=== PATIENT | female | born 1975 | race American Indian/Alaskan Native ===

== ENCOUNTER 2016-03-09 06:52 | Emergency (ER) | payer OTHER ==
[2016-03-09] MEDS ORDERED: TYLENOL #3 PO ONE (08:36)
--- NOTE | 2016-03-09 09:03 | Emergency Department Report ---
<MONET VASQUEZ - Last Filed: 03/09/16 18:59> ED Back Pain/Injury HPI - General Chief Complaint: Back Pain/Injury Stated Complaint: BACK PAIN Time Seen by Provider: 03/09/16 08:20 Source: patient Limitations: No Limitations - History of Present Illness Initial Comments: Patient presents complaining of mid back pain that is worsened with movement x early hours of the morning. 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 Denies weakness, tingling, or numbness, chest pain or discomfort, SOB. Patient has hypertension currently being treated with hydrochlorothiazide 25 mg daily. States no BP meds this morning. Denies signs and symptoms of elevated blood pressure. LMP 1 week ago. - Related Data Previous Rx's Medication Instructions Recorded Last Taken Type Hydrochlorothiazide [Hctz] 25 mg PO QDAY #60 tablet 06/28/14 06/24/15 Rx 25 MG Naproxen [Naprosyn TAB] 500 mg PO BID #30 tablet 06/24/15 Unknown Rx Cyclobenzaprine [Flexeril] 10 mg PO TID PRN #20 tablet 11/01/15 Unknown Rx Cetirizine HCl [ZyrTEC] 10 mg PO DAILY #30 capsule 01/19/16 Unknown Rx Fluticasone [Flonase] 1 spray NS QDAY #1 bottle 01/19/16 Unknown Rx Ibuprofen [Motrin 800 MG tab] 800 mg PO Q8HR PRN #30 tablet 01/19/16 Unknown Rx Cyclobenzaprine [Flexeril] 10 mg PO TID PRN #20 tablet 03/09/16 Unknown Rx Ibuprofen [Motrin 800 MG tab] 800 mg PO Q8HR PRN #30 tablet 03/09/16 Unknown Rx Allergies Allergy/AdvReac Type Severity Reaction Status Date / Time coconut oil Allergy Angioedema Verified 03/09/16 08:07 ED Review of Systems ROS: Stated complaint: BACK PAIN Other details as noted in HPI Comment: All other systems reviewed and negative ED Past Medical Hx - Past Medical History Hx Hypertension: Yes Hx Arthritis: Yes Additional medical history: bronchitis - Surgical History Additional Surgical History: ectopic preg. Neck mass bx - Social History Smoking Status: Current Every Day Smoker Substance Use Type: Alcohol - Medications Home Medications: Home Medications Medication Instructions Recorded Confirmed Last Taken Type Hydrochlorothiazide [Hctz] 25 mg PO QDAY #60 tablet 06/28/14 06/24/15 06/24/15 Rx 25 MG Naproxen [Naprosyn TAB] 500 mg PO BID #30 tablet 06/24/15 Unknown Rx Cyclobenzaprine [Flexeril] 10 mg PO TID PRN #20 tablet 11/01/15 Unknown Rx Cetirizine HCl [ZyrTEC] 10 mg PO DAILY #30 capsule 01/19/16 Unknown Rx Fluticasone [Flonase] 1 spray NS QDAY #1 bottle 01/19/16 Unknown Rx Ibuprofen [Motrin 800 MG tab] 800 mg PO Q8HR PRN #30 tablet 01/19/16 Unknown Rx Cyclobenzaprine [Flexeril] 10 mg PO TID PRN #20 tablet 03/09/16 Unknown Rx Ibuprofen [Motrin 800 MG tab] 800 mg PO Q8HR PRN #30 tablet 03/09/16 Unknown Rx ED Physical Exam - General Limitations: No Limitations General appearance: alert, in no apparent distress - Head Head exam: Present: atraumatic, normocephalic - Eye Eye exam: Present: normal appearance, PERRL, EOMI - Neck Neck exam: Present: normal inspection, full ROM. Absent: tenderness, meningismus, lymphadenopathy - Respiratory Respiratory exam: Present: normal lung sounds bilaterally. Absent: respiratory distress - Cardiovascular Cardiovascular Exam: Present: regular rate, normal rhythm - GI/Abdominal GI/Abdominal exam: Present: soft. Absent: tenderness - Extremities Exam Extremities exam: Present: normal inspection, full ROM - Back Exam Back exam: Present: normal inspection, full ROM, tenderness (t-spine region.), muscle spasm, paraspinal tenderness (right T-spine region.). Absent: CVA tenderness (R), CVA tenderness (L) - Neurological Exam Neurological exam: Present: alert, oriented X3, normal gait, reflexes normal. Absent: motor sensory deficit - Psychiatric Psychiatric exam: Present: normal affect, normal mood - Skin Skin exam: Present: warm, dry, intact, normal color ED Course Vital Signs 03/09/16 03/09/16 08:08 09:17 Temperature 98.0 F Pulse Rate 74 74 Respiratory 18 20 Rate Blood Pressure 188/110 Blood Pressure 189/113 [Left] O2 Sat by Pulse 100 100 Oximetry ED Medical Decision Making - Radiology Data Radiology results: report reviewed According to radiology report x-ray T-spine, no acute pathology. - Medical Decision Making 41 YOF with acute thoracic strain and unremarkable xray T-spine. Patient is stable. She will be DC'd on oral Motrin and Flexeril (see prescriptions) and referred to specialist. X-rays results fully explained to patient. BP noted. however patient is asymptomatic and hasn't taken her BP meds today. She is instructed to take her meds and follow up with her PCP. She verbalized understanding and is agreeable to plan. Critical care attestation.: If time is entered above; I have spent that time in minutes in the direct care of this critically ill patient, excluding procedure time. ED Disposition Disposition: DISCHARGED TO HOME OR SELFCARE Is pt being admited?: No Does the pt Need Aspirin: No Condition: Stable Instructions: Muscle Strain (ED), Core Strengthening Exercises (GEN) Additional Instructions: Follow instructions for care. Use medications as prescribed. Be compliant with your antihypertensive medication. As discussed, Follow-up immediately with your PCP for your elevated blood pressure as not doing so in a timely manner could resultant heart attack or stroke. Return to ED for new or worsening symptoms. Prescriptions: Cyclobenzaprine [Flexeril] 10 mg PO TID PRN #20 tablet PRN Reason: Muscle Spasm Ibuprofen [Motrin 800 MG tab] 800 mg PO Q8HR PRN #30 tablet PRN Reason: Pain Referrals: PRIMARY CARE,MD [Primary Care Provider] - 2-3 Days HAN MCMANUS MD [Staff Physician] - 3-5 Days <THIEN RIOS - Last Filed: 03/10/16 14:38> ED Course - Reevaluation(s) Reevaluation #1: I have reviewed this chart. The patient has uncontrolled hypertension. She has midthoracic back pain. She needs further workup. Differential diagnosis could include aortic dissection. However I have looked at her T-spine x-ray and she appears to have a normal mediastinum. She will be called back for further evaluation. Charge nurse was informed. 03/10/16 14:37
--- NOTE | 2016-03-09 09:07 | XRay Report ---
THORACIC SPINE: History: Back pain, injury. The bones are normally mineralized with well preserved vertebral height, alignment and interspace distances. No paraspinal soft tissue widening is noted. IMPRESSION: Normal study.
[2016-03-09 09:17] VITALS: BP 189/113
== END 2016-03-09 09:27 | disposition home or self-care (01) ==
LOC: ED 06:52
DX: M54.6 Pain in thoracic spine (principal); I10 Essential (primary) hypertension; M19.90 Unspecified osteoarthritis, unspecified site; F17.200 Nicotine dependence, unspecified, uncomplicated; Z91.02 Food additives allergy status
CPT/HCPCS: 72072

== ENCOUNTER 2016-03-12 06:57 | Emergency (ER) | payer OTHER ==
[2016-03-12] MEDS ORDERED: CATAPRES PO ONE (08:56)
--- NOTE | 2016-03-12 09:09 | Emergency Department Report ---
ED Back Pain/Injury HPI - General Chief Complaint: Recheck/Abnormal Lab/Rx Stated Complaint: CALL BACK Time Seen by Provider: 03/12/16 08:48 Source: patient Limitations: No Limitations - History of Present Illness Initial Comments: 41-year-old female with a past medical history of hypertension and arthritis presents to the hospital complains of posterior thoracic pain for the past 4 days. Pain wasn't described as a middle pressure that was constant but now intermittent. Pain started after performing heavy lifting also involving prolonged bending forward. Patient was seen and evaluated on March 12 by the mid-level practitioner and diagnosed with musculoskeletal pain. After chart review physician requesting return to ER for evaluation to rule out dissection given back pain and uncontrolled hypertension. Patient states she monitors her blood pressure at home and he has been poorly controlled the last 2-3 years. She has been compliant with the hydrochlorothiazide 25 mg every at bedtime. Last dose was last night. In the past patient has been on lisinopril as well. Patient complains of pain with movement and deep inspiration. Patient does have a primary care doctor but cannot recall the name. Patient denies chest pain, dyspnea, nausea, vomiting, numbness, tingling, weakness, or diaphoresis. - Related Data Previous Rx's Medication Instructions Recorded Last Taken Type Hydrochlorothiazide [Hctz] 25 mg PO QDAY #60 tablet 06/28/14 03/11/16 20:30 Rx Ibuprofen [Motrin 800 MG tab] 800 mg PO Q8HR PRN #30 tablet 01/19/16 03/12/16 03 :30 Rx Cyclobenzaprine [Flexeril] 10 mg PO TID PRN #20 tablet 03/09/16 03/11/16 08:00 Rx Lisinopril [Zestril TAB] 20 mg PO QDAY #30 tablet 03/12/16 Unknown Rx Allergies Allergy/AdvReac Type Severity Reaction Status Date / Time coconut oil Allergy Angioedema Verified 03/12/16 07:33 ED Review of Systems ROS: Stated complaint: CALL BACK Other details as noted in HPI Comment: All other systems reviewed and negative Other: Constitutional: No fevers chills or weight loss Eyes: No eye pain visual changes or discharge ENT: No ear pain or throat pain Neck: Denies pain Respiratory: Denies cough wheezing shortness of breath Cardiovascular: Denies chest pain, palpitations, syncope GI: Denies abdominal pain, nausea, vomiting, diarrhea : Denies dysuria Musculoskeletal: As per HPI Skin: Denies rash, lesions, erythema Neurologic: Denies headache, numbness, weakness Psychiatric: Denies suicidal ideation, hallucinations ED Past Medical Hx - Past Medical History Hx Hypertension: Yes Hx Arthritis: Yes Additional medical history: bronchitis. FIBROIDS - Surgical History Additional Surgical History: ectopic preg. Neck mass bx - Social History Smoking Status: Current Every Day Smoker Substance Use Type: Alcohol - Medications Home Medications: Home Medications Medication Instructions Recorded Confirmed Last Taken Type Hydrochlorothiazide [Hctz] 25 mg PO QDAY #60 tablet 06/28/14 03/12/16 03/11/16 20:30 Rx Ibuprofen [Motrin 800 MG tab] 800 mg PO Q8HR PRN #30 tablet 01/19/16 03/12/16 03:30 Rx Cyclobenzaprine [Flexeril] 10 mg PO TID PRN #20 tablet 03/09/16 03/12/16 08:00 Rx Lisinopril [Zestril TAB] 20 mg PO QDAY #30 tablet 03/12/16 Unknown Rx ED Physical Exam - General Limitations: No Limitations - Other Other exam information: General: No limitations, patient is alert in no acute distress Head exam: Atraumatic, normocephalic Eyes exam: Normal appearance ENT: Moist mucous membrane, normal oropharynx Neck exam: Normal inspection, full range of motion, no meningismus nontender Respiratory exam: Clear to auscultation bilateral, no wheezes, rales, crackles Cardiovascular: Normal rate and rhythm, normal heart sounds Abdomen: Soft, nondistended, and nontender, with normal bowel sounds, no rebound, or guarding Extremity: Full range of motion normal inspection no deformity Back: Normal Inspection, full range of motion, no tenderness however pain to mid lower post thoracic area with twisting torso in either direction Neurologic: Alert, oriented x3, cranial nerves intact, no motor or sensory deficit Psychiatric: normal affect, normal mood Skin: Warm, dry, intact ED Course Vital Signs 03/12/16 03/12/16 03/12/16 07:20 09:14 09:15 Temperature 98.0 F 98.1 F Pulse Rate 77 88 85 Respiratory 17 16 Rate Blood Pressure 202/114 178/113 Blood Pressure 178/113 [Left] O2 Sat by Pulse 100 99 Oximetry 03/12/16 03/12/16 03/12/16 10:18 10:31 11:43 Temperature Pulse Rate 80 78 Respiratory 16 16 16 Rate Blood Pressure Blood Pressure 169/108 168/101 [Left] O2 Sat by Pulse 99 99 99 Oximetry - Reevaluation(s) Reevaluation #1: 03/12/16 11:57 Patient given clonidine 0.1 mg. BP is trending downward. ED Medical Decision Making - Lab Data Result diagrams: 03/12/16 09:10 03/12/16 09:10 Lab Results 03/12/16 03/12/16 Range/Units 09:10 09:10 WBC 5.3 (4.5-11.0) K/mm3 RBC 3.84 (3.65-5.03) M/mm3 Hgb 12.6 (10.1-14.3) gm/dl Hct 37.7 (30.3-42.9) % MCV 98 H (79-97) fl MCH 33 H (28-32) pg MCHC 33 (30-34) % RDW 14.7 (13.2-15.2) % Plt Count 313 (140-440) K/mm3 Sodium 138 (137-145) mmol/L Potassium 3.8 (3.6-5.0) mmol/L Chloride 101.4 (98-107) mmol/L Carbon Dioxide 25 (22-30) mmol/L Anion Gap 15 mmol/L BUN 10 (7-17) mg/dL Creatinine 0.6 L (0.7-1.2) mg/dL Estimated GFR > 60 ml/min BUN/Creatinine Ratio 16.66 % Glucose 90 (65-100) mg/dL Calcium 9.0 (8.4-10.2) mg/dL - Radiology Data Radiology results: report reviewed CT angios chest: No acute abnormality CT angiogram abdomen and pelvis: NAF Moderate to severe uterine fibroid disease - Medical Decision Making Plan to discharge patient home on additional BP medication for chronically elevated hypertension. No signs of hypertensive emergency. CT angiogram negative for aortic abnormality. The patient has musculoskeletal injury from recent heavy lifting at work. Outpatient follow-up will be encouraged. - Differential Diagnosis muscle strain, dissection hypertensive emergency, hypertensive urgency Critical Care Time: No Critical care attestation.: If time is entered above; I have spent that time in minutes in the direct care of this critically ill patient, excluding procedure time. ED Disposition Clinical Impression: Uncontrolled hypertension Strain, back Qualifiers: Encounter type: subsequent encounter Qualified Code(s): S39.012D - Strain of muscle, fascia and tendon of lower back, subsequent encounter Disposition: DISCHARGED TO HOME OR SELFCARE Is pt being admited?: No Does the pt Need Aspirin: No Condition: Stable Instructions: Hypertension (ED), Back Pain (ED) Additional Instructions: Continue your hydrochlorothiazide and also taking lisinopril prescribed daily for your blood pressure. Continue to monitor your blood pressure at home and keep a log. Follow-up with your doctor within 3-5 days to discuss your response to the medication change and to receive further instructions for medication adjustment. Return if symptoms worsen. Prescriptions: Lisinopril [Zestril TAB] 20 mg PO QDAY #30 tablet Referrals: PRIMARY CARE, [Primary Care Provider] - 3-5 Days Time of Disposition: 12:03
[2016-03-12 09:25] LABS: Hematocrit 37.7 % (30.3-42.9); Hemoglobin 12.6 gm/dl (10.1-14.3); Mean Corpuscular HGB Conc 33 % (30-34); Mean Corpuscular Hemoglobin 33 pg (28-32); Mean Corpuscular Volume 98 fl (79-97); Platelet Count 313 K/mm3 (140-440); Red Blood Count 3.84 M/mm3 (3.65-5.03); Red Cell Distribution Width 14.7 % (13.2-15.2); White Blood Count 5.3 K/mm3 (4.5-11.0)
[2016-03-12 09:39] LABS: Anion Gap 15 mmol/L; BUN/Creatinine Ratio 16.66; Blood Urea Nitrogen 10 mg/dL (7-17); Carbon Dioxide 25 mmol/L (22-30); Chloride 101.4 mmol/L (98-107); Glucose 90 mg/dL (65-100); Potassium 3.8 mmol/L (3.6-5.0); Sodium 138 mmol/L (137-145)
[2016-03-12] MEDS ORDERED: NACL ONE (09:42)
--- NOTE | 2016-03-12 11:21 | Cat Scan Report ---
CTA chest: History: Hypertension, back pain. Evaluate for dissection. Findings: Note no evidence of aortic aneurysm or aortic dissection. No evidence of pulmonary embolism. No mediastinal mass or adenopathy. No pleural or pericardial effusion. Normal lung parenchyma. No discrete nodularity or consolidation. Impression: No evidence of the aneurysm a pulmonary embolism. No acute changes.
[2016-03-12 11:44] VITALS: BP 168/101
--- NOTE | 2016-03-12 11:50 | Cat Scan Report ---
CT ANGIO ABDOMEN AND PELVIS History: Back pain, evaluate for aortic dissection. Technique: Helical CT following IV contrast. Sagittal and coronal reformatted images. Rotational MIP images. NASCET criteria was utilized. Findings: The visualized aorta, celiac axis, SMA, YOUSIF, bilateral renal arteries and bilateral iliac systems are widely patent with no evidence of atherosclerotic disease. There is less than 10% stenosis throughout these vessels. There is no aneurysm or dissection. The uterus is markedly enlarged and lobular consistent with advanced uterine fibroid disease. The remaining abdominal and pelvic viscera are within normal limits on CTA exam. No fracture or bone lesion is appreciated. Impression: Normal CTA of the abdomen and pelvis. No evidence for dissection. Moderate to severe uterine fibroid disease.
== END 2016-03-12 12:14 | disposition home or self-care (01) ==
LOC: ED 06:57
DX: S39.012D Strain of muscle, fascia and tendon of lower back, subsequent encounter (principal); I10 Essential (primary) hypertension; F17.200 Nicotine dependence, unspecified, uncomplicated; X58.XXXA Exposure to other specified factors, initial encounter; Y93.9 Activity, unspecified; Y92.9 Unspecified place or not applicable; Y99.9 Unspecified external cause status
CPT/HCPCS: 36415; 71275; 74174; 80048; 85027; 99284; Q9967

== ENCOUNTER 2016-05-07 00:17 | Emergency (ER) | payer OTHER ==
[2016-05-07 01:40] LABS: Anion Gap 15 mmol/L; BUN/Creatinine Ratio 13.33; Blood Urea Nitrogen 8 mg/dL (7-17); Carbon Dioxide 24 mmol/L (22-30); Glucose 95 mg/dL (65-100); Potassium 3.2 mmol/L (3.6-5.0); Sodium 138 mmol/L (137-145)
[2016-05-07 02:10] LABS: Basophils % (Auto) 1.1 % (0.0-1.8); Hematocrit 36.9 % (30.3-42.9); Hemoglobin 12.2 gm/dl (10.1-14.3); Mean Corpuscular HGB Conc 33 % (30-34); Mean Corpuscular Hemoglobin 33 pg (28-32); Mean Corpuscular Volume 99 fl (79-97); Platelet Count 300 K/mm3 (140-440); Red Blood Count 3.74 M/mm3 (3.65-5.03); Red Cell Distribution Width 14.8 % (13.2-15.2); White Blood Count 5.7 K/mm3 (4.5-11.0)
[2016-05-07] MEDS ORDERED: K-DUR PO ONE (09:39)
[2016-05-07 09:46] VITALS: BP 140/98
[2016-05-07] MEDS ORDERED: ULTRAM ONE (09:47)
[2016-05-07 09:53] LABS: Urine Drugs of Abuse Note Disclamer
[2016-05-07] MEDS ORDERED: ULTRAM PO ONE (09:55)
[2016-05-07 10:21] LABS: Bacteria,Urine 1+ /HPF (Negative); Mucus,Urine FEW /HPF
[2016-05-07 10:22] LABS: Bilirubin,Urine NEG (Negative); Blood,Urine SM (Negative); Ketones,Urine NEG (Negative); Leukocyte Esterase,Urine SM (Negative); Nitrite,Urine NEG (Negative); Protein,Urine <15 mg/dL mg/dL (Negative); Urobilinogen,Urine < 2.0 mg/dL (<2.0)
--- NOTE | 2016-05-07 12:14 | Emergency Department Report ---
ED General Adult HPI - General Chief complaint: High BP Stated complaint: POSS HIGH BP Time Seen by Provider: 05/07/16 09:36 Source: patient Mode of arrival: Ambulatory Limitations: No Limitations - History of Present Illness Initial comments: Patient was concerned about her blood pressure. She states that she occasionally has headaches and sometimes chest pain. However she does not report either chest pain or headache of any recent incidents. She has no chest pain or headache now. She denies any respiratory symptoms or any neurological change. She states that she just takes HCTZ for her blood pressure. -: Gradual Location: head (occasionally but not current), chest (occasionally but nonexertional) Radiation: non-radiation Quality: aching Consistency: now resolved Improves with: none Worsens with: none Associated Symptoms: denies other symptoms Treatments Prior to Arrival: none - Related Data Previous Rx's Medication Instructions Recorded Last Taken Type Hydrochlorothiazide [Hctz] 25 mg PO QDAY #60 tablet 06/28/14 05/06/16 Rx Lisinopril/Hydrochlorothiazide 1 tab PO QDAY #30 tablet 05/07/16 Unknown Rx [Zestoretic 10-12.5 mg] Allergies Allergy/AdvReac Type Severity Reaction Status Date / Time coconut oil Allergy Angioedema Verified 05/07/16 00:57 ED Review of Systems ROS: Stated complaint: POSS HIGH BP Other details as noted in HPI Constitutional: denies: chills, fever Eyes: denies: eye pain, eye discharge, vision change ENT: denies: ear pain, throat pain Respiratory: denies: cough, shortness of breath, wheezing Cardiovascular: as per HPI, chest pain. denies: palpitations Endocrine: no symptoms reported Gastrointestinal: denies: abdominal pain, nausea, diarrhea Genitourinary: denies: urgency, dysuria, discharge Musculoskeletal: denies: back pain, joint swelling, arthralgia Skin: denies: rash, lesions Neurological: headache. denies: weakness, numbness, paresthesias, confusion, abnormal gait, vertigo Psychiatric: denies: anxiety, depression Hematological/Lymphatic: denies: easy bleeding, easy bruising ED Past Medical Hx - Past Medical History Previous Medical History?: Yes Hx Hypertension: Yes Hx Arthritis: Yes Additional medical history: bronchitis. FIBROIDS - Surgical History Past Surgical History?: Yes Additional Surgical History: ectopic preg. Neck mass bx - Social History Smoking Status: Never Smoker Substance Use Type: None - Medications Home Medications: Home Medications Medication Instructions Recorded Confirmed Last Taken Type Hydrochlorothiazide [Hctz] 25 mg PO QDAY #60 tablet 06/28/14 05/07/16 05/06/16 Rx Lisinopril/Hydrochlorothiazide 1 tab PO QDAY #30 tablet 05/07/16 Unknown Rx [Zestoretic 10-12.5 mg] ED Physical Exam - General Limitations: No Limitations General appearance: alert, in no apparent distress - Head Head exam: Present: atraumatic, normocephalic - Eye Eye exam: Present: normal appearance, PERRL, EOMI. Absent: scleral icterus Pupils: Present: normal accommodation - ENT ENT exam: Present: normal exam, mucous membranes moist - Neck Neck exam: Present: normal inspection - Respiratory Respiratory exam: Present: normal lung sounds bilaterally. Absent: respiratory distress - Cardiovascular Cardiovascular Exam: Present: regular rate, normal rhythm. Absent: systolic murmur, diastolic murmur, rubs, gallop - GI/Abdominal GI/Abdominal exam: Present: soft, normal bowel sounds. Absent: distended, tenderness, guarding, rebound, rigid, organomegaly, mass, bruit, pulsatile mass , hernia - Extremities Exam Extremities exam: Present: normal inspection - Back Exam Back exam: Present: normal inspection - Neurological Exam Neurological exam: Present: alert, oriented X3, CN II-XII intact. Absent: motor sensory deficit - Psychiatric Psychiatric exam: Present: normal affect, normal mood - Skin Skin exam: Present: warm, dry, intact, normal color. Absent: rash ED Course Vital Signs 05/07/16 05/07/16 05/07/16 00:52 08:26 09:45 Temperature 98.6 F 98.1 F Pulse Rate 72 85 75 Respiratory 18 16 16 Rate Blood Pressure 162/112 165/100 140/98 [Right] O2 Sat by Pulse 100 99 99 Oximetry - Reevaluation(s) Reevaluation #1: On reexamination the patient's blood pressure is within the normal range. She is asymptomatic. Her blood pressure was 165/100 on arrival. Her medical regimen will be changed. Her potassium was repleted. 05/07/16 12:14 ED Medical Decision Making - Lab Data Result diagrams: 05/07/16 01:07 05/07/16 01:07 Laboratory Results - last 24 hr 05/07/16 05/07/16 05/07/16 01:07 01:07 03:59 WBC 5.7 RBC 3.74 Hgb 12.2 Hct 36.9 MCV 99 H MCH 33 H MCHC 33 RDW 14.8 Plt Count 300 Lymph % (Auto) 45.9 H Henry % (Auto) 8.3 H Eos % (Auto) 6.0 H Baso % (Auto) 1.1 Lymph # 2.6 Henry # 0.5 Eos # 0.3 Baso # 0.1 Seg Neutrophils % 38.7 L Seg Neutrophils # 2.2 Sodium 138 Potassium 3.2 L Chloride 102.0 Carbon Dioxide 24 Anion Gap 15 BUN 8 Creatinine 0.6 L Estimated GFR > 60 BUN/Creatinine Ratio 13.33 Glucose 95 Calcium 9.0 Troponin T < 0.010 < 0.010 Urine Color Urine Turbidity Urine pH Ur Specific Henderson Urine Protein Urine Glucose (UA) Urine Ketones Urine Blood Urine Nitrite Ur Reducing Substances Urine Bilirubin Urine Ictotest Urine Urobilinogen Ur Leukocyte Esterase Urine WBC (Auto) Urine RBC (Auto) U Epithel Cells (Auto) Urine Bacteria (Auto) Urine Mucus Urine HCG, Qual Urine Opiates Screen Urine Methadone Screen Ur Barbiturates Screen Ur Phencyclidine Scrn Ur Amphetamines Screen U Benzodiazepines Scrn Urine Cocaine Screen U Marijuana (THC) Screen Drugs of Abuse Note 05/07/16 05/07/16 05/07/16 07:34 09:41 09:41 WBC RBC Hgb Hct MCV MCH MCHC RDW Plt Count Lymph % (Auto) Henry % (Auto) Eos % (Auto) Baso % (Auto) Lymph # Henry # Eos # Baso # Seg Neutrophils % Seg Neutrophils # Sodium Potassium Chloride Carbon Dioxide Anion Gap BUN Creatinine Estimated GFR BUN/Creatinine Ratio Glucose Calcium Troponin T < 0.010 Urine Color Yellow Urine Turbidity Clear Urine pH 5.0 Ur Specific Henderson 1.026 Urine Protein <15 mg/dl Urine Glucose (UA) Neg Urine Ketones Neg Urine Blood Sm Urine Nitrite Neg Ur Reducing Substances Not Reportable Urine Bilirubin Neg Urine Ictotest Not Reportable Urine Urobilinogen < 2.0 Ur Leukocyte Esterase Sm Urine WBC (Auto) 5.0 Urine RBC (Auto) 6.0 U Epithel Cells (Auto) 11.0 Urine Bacteria (Auto) 1+ Urine Mucus Few Urine HCG, Qual Negative Urine Opiates Screen Presumptive negative Urine Methadone Screen Presumptive negative Ur Barbiturates Screen Presumptive negative Ur Phencyclidine Scrn Presumptive negative Ur Amphetamines Screen Presumptive negative U Benzodiazepines Scrn Presumptive negative Urine Cocaine Screen Presumptive negative U Marijuana (THC) Screen Presumptive negative Drugs of Abuse Note Disclamer Critical care attestation.: If time is entered above; I have spent that time in minutes in the direct care of this critically ill patient, excluding procedure time. ED Disposition Clinical Impression: Essential hypertension, Hypokalemia Chest pain Qualifiers: Chest pain type: unspecified Qualified Code(s): R07.9 - Chest pain, unspecified Disposition: DISCHARGED TO HOME OR SELFCARE Is pt being admited?: No Does the pt Need Aspirin: No Condition: Stable Instructions: Chest Pain (ED), Hypertension (ED), Hypokalemia (ED) Additional Instructions: Follow-up primary care setting. Stop your current blood pressure medicine. Rx as directed. Return any acute change or problem. Prescriptions: Lisinopril/Hydrochlorothiazide [Zestoretic 10-12.5 mg] 1 tab PO QDAY #30 tablet Referrals: PRIMARY CARE, [Primary Care Provider] - 3-5 Days [facility] [Provider Group] - 3-5 Days Time of Disposition: 12:16
== END 2016-05-07 12:38 | disposition home or self-care (01) ==
LOC: ED 00:17
DX: I10 Essential (primary) hypertension (principal); E87.6 Hypokalemia; R07.9 Chest pain, unspecified
CPT/HCPCS: 36415; 80048; 80307; 81001; 81025; 84484; 85025; 93005; 93010; 99284

== ENCOUNTER 2016-06-24 11:38 | Emergency (ER) | payer OTHER ==
[2016-06-24 11:48] VITALS: BP 179/118
[2016-06-24 12:32] LABS: Basophils % (Auto) 1.1 % (0.0-1.8); Eosinophils % (Auto) 9.1 % (0.0-4.3); Hematocrit 36.4 % (30.3-42.9); Hemoglobin 11.9 gm/dl (10.1-14.3); Mean Corpuscular HGB Conc 33 % (30-34); Mean Corpuscular Hemoglobin 33 pg (28-32); Mean Corpuscular Volume 101 fl (79-97); Platelet Count 262 K/mm3 (140-440); Red Blood Count 3.62 M/mm3 (3.65-5.03); Red Cell Distribution Width 14.5 % (13.2-15.2); White Blood Count 5.1 K/mm3 (4.5-11.0)
[2016-06-24] MEDS ORDERED: IMODIUM PO ONE (12:36)
[2016-06-24 12:38] LABS: Bacteria,Urine 1+ /HPF (Negative); Bilirubin,Urine NEG (Negative); Blood,Urine MOD (Negative); Ketones,Urine NEG (Negative); Leukocyte Esterase,Urine MOD (Negative); Mucus,Urine FEW /HPF; Nitrite,Urine NEG (Negative); Protein,Urine <15 mg/dL mg/dL (Negative); Urobilinogen,Urine < 2.0 mg/dL (<2.0)
[2016-06-24 12:53] LABS: Anion Gap 15 mmol/L; Blood Urea Nitrogen 6 mg/dL (7-17); Calcium 8.8 mg/dL (8.4-10.2); Carbon Dioxide 23 mmol/L (22-30); Chloride 104.7 mmol/L (98-107); Glucose 84 mg/dL (65-100); Potassium 3.9 mmol/L (3.6-5.0); Sodium 139 mmol/L (137-145)
--- NOTE | 2016-06-24 13:05 | XRay Report ---
ABDOMEN, 2 views: History: Nausea, vomiting, diarrhea. There is no evidence of free air beneath the diaphragms. The gas pattern within the abdomen is unremarkable. There is no evidence of bowel dilatation, significant air-fluid levels, or pathologic calcifications. Organ shadows are unremarkable. IMPRESSION: Unremarkable abdomen.
--- NOTE | 2016-06-24 13:19 | Emergency Department Report ---
ED N/V/D HPI - General Chief complaint: Nausea/Vomiting/Diarrhea Stated complaint: STOMACH PAINS Time Seen by Provider: 06/24/16 12:18 Source: patient Mode of arrival: Ambulatory Limitations: No Limitations - History of Present Illness MD complaint: nausea, vomiting, diarrhea, abdominal pain -: Gradual Description of Vomiting: food contents Description of Diarrhea: water Associated Abdominal Pain: Yes Location: diffuse Radiation: none Severity: mild Quality: cramping Consistency: intermittent Improves with: none Worsens with: none Associated Symptoms: denies: myalgias, chest pain, cough, diaphoresis, fever/ chills, headaches, loss of appetite, malaise, nausea/vomiting - Related Data Previous Rx's Medication Instructions Recorded Last Taken Type Hydrochlorothiazide [Hctz] 25 mg PO QDAY #60 tablet 06/28/14 05/06/16 Rx Lisinopril/Hydrochlorothiazide 1 tab PO QDAY #30 tablet 05/07/16 Unknown Rx [Zestoretic 10-12.5 mg] Diphenoxylate HCl/Atropine 1 each PO BID #12 tablet 06/24/16 Unknown Rx [Lomotil 2.5-0.025 mg Tablet] Allergies Allergy/AdvReac Type Severity Reaction Status Date / Time coconut oil Allergy Angioedema Verified 05/07/16 00:57 ED Review of Systems ROS: Stated complaint: STOMACH PAINS Other details as noted in HPI Constitutional: denies: chills, fever Eyes: denies: eye pain, eye discharge, vision change ENT: denies: ear pain, throat pain Respiratory: denies: cough, shortness of breath, wheezing Cardiovascular: denies: chest pain, palpitations Endocrine: no symptoms reported Gastrointestinal: denies: abdominal pain, nausea, diarrhea Genitourinary: denies: urgency, dysuria, discharge Musculoskeletal: denies: back pain, joint swelling, arthralgia Skin: denies: rash, lesions Neurological: denies: headache, weakness, paresthesias Psychiatric: denies: anxiety, depression Hematological/Lymphatic: denies: easy bleeding, easy bruising ED Past Medical Hx - Past Medical History Previous Medical History?: Yes Hx Hypertension: Yes Hx Arthritis: Yes Additional medical history: bronchitis. FIBROIDS - Surgical History Past Surgical History?: Yes Additional Surgical History: ectopic preg. Neck mass bx - Social History Smoking Status: Current Every Day Smoker Substance Use Type: Alcohol - Medications Home Medications: Home Medications Medication Instructions Recorded Confirmed Last Taken Type Hydrochlorothiazide [Hctz] 25 mg PO QDAY #60 tablet 06/28/14 05/07/16 05/06/16 Rx Lisinopril/Hydrochlorothiazide 1 tab PO QDAY #30 tablet 05/07/16 Unknown Rx [Zestoretic 10-12.5 mg] Diphenoxylate HCl/Atropine 1 each PO BID #12 tablet 06/24/16 Unknown Rx [Lomotil 2.5-0.025 mg Tablet] ED Physical Exam - General Limitations: No Limitations General appearance: alert, in no apparent distress - Head Head exam: Present: atraumatic, normocephalic - Eye Eye exam: Present: normal appearance - ENT ENT exam: Present: mucous membranes moist - Neck Neck exam: Present: normal inspection - Respiratory Respiratory exam: Present: normal lung sounds bilaterally. Absent: respiratory distress - Cardiovascular Cardiovascular Exam: Present: regular rate, normal rhythm. Absent: systolic murmur, diastolic murmur, rubs, gallop - GI/Abdominal GI/Abdominal exam: Present: soft, normal bowel sounds - Extremities Exam Extremities exam: Present: normal inspection - Back Exam Back exam: Present: normal inspection - Neurological Exam Neurological exam: Present: alert, oriented X3 - Psychiatric Psychiatric exam: Present: normal affect, normal mood - Skin Skin exam: Present: warm, dry, intact, normal color. Absent: rash ED Course Vital Signs 06/24/16 11:46 Temperature 98.3 F Pulse Rate 78 Respiratory 16 Rate Blood Pressure 179/118 O2 Sat by Pulse 100 Oximetry ED Medical Decision Making - Lab Data Result diagrams: 06/24/16 12:19 06/24/16 12:19 Critical care attestation.: If time is entered above; I have spent that time in minutes in the direct care of this critically ill patient, excluding procedure time. ED Disposition Clinical Impression: Diarrhea Disposition: DISCHARGED TO HOME OR SELFCARE Is pt being admited?: No Does the pt Need Aspirin: No Condition: Good Instructions: Loperamide (By mouth), Acute Diarrhea (ED) Prescriptions: Diphenoxylate HCl/Atropine [Lomotil 2.5-0.025 mg Tablet] 1 each PO BID #12 tablet Referrals: PRIMARY CARE, [Primary Care Provider] - 3-5 Days Forms: Work/School Release Form(ED) Time of Disposition: 13:17
== END 2016-06-24 13:35 | disposition home or self-care (01) ==
LOC: ED 11:38
DX: R19.7 Diarrhea, unspecified (principal); I10 Essential (primary) hypertension; M19.90 Unspecified osteoarthritis, unspecified site; F17.200 Nicotine dependence, unspecified, uncomplicated; Z91.02 Food additives allergy status
CPT/HCPCS: 36415; 74020; 80048; 81001; 85025

== ENCOUNTER 2017-01-07 19:30 | Inpatient (IN) | payer OTHER ==
[2017-01-07 20:38] LABS: Hematocrit 37.8 % (30.3-42.9); Hemoglobin 12.7 gm/dl (10.1-14.3); Mean Corpuscular HGB Conc 34 % (30-34); Mean Corpuscular Hemoglobin 33 pg (28-32); Mean Corpuscular Volume 97 fl (79-97); Platelet Count 262 K/mm3 (140-440); Red Cell Distribution Width 14.8 % (13.2-15.2); White Blood Count 5.8 K/mm3 (4.5-11.0)
[2017-01-07 20:50] LABS: INR 0.9 (0.87-1.13)
[2017-01-07 20:51] LABS: Partial Thromboplastin Time 30.3 Sec. (24.2-36.6)
[2017-01-07 20:58] LABS: Anion Gap 13 mmol/L; BUN/Creatinine Ratio 12; Blood Urea Nitrogen 7 mg/dL (7-17); Calcium 9.3 mg/dL (8.4-10.2); Carbon Dioxide 26 mmol/L (22-30); Chloride 99.7 mmol/L (98-107); Glucose 89 mg/dL (65-100); Potassium 3.3 mmol/L (3.6-5.0); Sodium 135 mmol/L (137-145)
--- NOTE | 2017-01-07 21:03 | Cat Scan Report ---
FINAL REPORT PROCEDURE: CT HEAD/BRAIN WO CON TECHNIQUE: Computerized tomography of the head was performed without contrast material. HISTORY: SEVERE HEADACHE WITH HTN COMPARISON: No prior studies are available for comparison. FINDINGS: Skull and scalp: Normal. Paranasal sinuses: Normal. Ventricles and subarachnoid spaces: Normal. Cerebrum: No evidence of hemorrhage, acute infarction or mass . Cerebellum and brainstem: No evidence of hemorrhage, acute infarction or mass. Vasculature: Normal. Comments: None. IMPRESSION: Normal Examination
[2017-01-07 22:15] LABS: Bilirubin,Urine NEG (Negative); Blood,Urine LG (Negative); Ketones,Urine NEG (Negative); Leukocyte Esterase,Urine NEG (Negative); Nitrite,Urine NEG (Negative); Protein,Urine <15 mg/dL mg/dL (Negative); Urobilinogen,Urine < 2.0 mg/dL (<2.0)
--- NOTE | 2017-01-08 06:33 | Emergency Department Report ---
ED Headache HPI - General Chief Complaint: Neuro Symptoms/Deficit Stated Complaint: HEADACHE Time Seen by Provider: 01/08/17 06:19 - History of Present Illness Initial Comments: Patient complains of left frontal headache. She stated that yesterday that her left vision was blurred for about 5 minutes. She also stated that she experienced difficulty speaking and moving her face because "it hurt". Today she has no visual problems or difficulty speaking/facial drooping. She denies any neurological change otherwise. She has been fully ambulatory without difficulty. She has a history of hypertension and states she is compliant with her medicines. She denies any recent fever or chills. Timing/Duration: 24 hours Quality: moderate, severe Head Injury Location: frontal Recent Head Trauma: no recent headache/trauma Modifying Factors: improves with: other Associated Symptoms: denies symptoms (as above described) Allergies/Adverse Reactions: Allergies coconut oil Allergy (Verified 05/07/16 00:57) Angioedema Home Medications: Ambulatory Orders Hydrochlorothiazide [Hctz] 25 mg PO QDAY #60 tablet 06/28/14 ED Review of Systems ROS: Stated complaint: HEADACHE Other details as noted in HPI Constitutional: denies: chills, fever Eyes: denies: eye pain, eye discharge, vision change ENT: denies: ear pain, throat pain Respiratory: denies: cough, shortness of breath, wheezing Cardiovascular: denies: chest pain, palpitations Endocrine: no symptoms reported Gastrointestinal: denies: abdominal pain, nausea, diarrhea Genitourinary: denies: urgency, dysuria, discharge Musculoskeletal: denies: back pain, joint swelling, arthralgia Skin: denies: rash, lesions Neurological: as per HPI, headache. denies: weakness, paresthesias Psychiatric: denies: anxiety, depression Hematological/Lymphatic: denies: easy bleeding, easy bruising ED Past Medical Hx - Past Medical History Hx Hypertension: Yes Hx Arthritis: Yes Additional medical history: bronchitis. FIBROIDS - Surgical History Additional Surgical History: ectopic preg. Neck mass bx - Social History Smoking Status: Current Every Day Smoker Substance Use Type: None - Medications Home Medications: Home Medications Medication Instructions Recorded Confirmed Last Taken Type Hydrochlorothiazide [Hctz] 25 mg PO QDAY #60 tablet 06/28/14 01/08/17 01/07/17 17:00 Rx ED Physical Exam - General Limitations: No Limitations General appearance: alert, in no apparent distress - Head Head exam: Present: atraumatic, normocephalic - Eye Eye exam: Present: normal appearance, PERRL, EOMI. Absent: scleral icterus - ENT ENT exam: Present: mucous membranes moist - Neck Neck exam: Present: normal inspection - Respiratory Respiratory exam: Present: normal lung sounds bilaterally. Absent: respiratory distress - Cardiovascular Cardiovascular Exam: Present: regular rate, normal rhythm. Absent: systolic murmur, diastolic murmur, rubs, gallop - GI/Abdominal GI/Abdominal exam: Present: soft, normal bowel sounds. Absent: distended, tenderness, guarding, rebound - Extremities Exam Extremities exam: Present: normal inspection - Back Exam Back exam: Present: normal inspection - Neurological Exam Neurological exam: Present: alert, oriented X3, CN II-XII intact, normal gait, other. Absent: motor sensory deficit - Psychiatric Psychiatric exam: Present: normal affect, normal mood - Skin Skin exam: Present: warm, dry, intact, normal color. Absent: rash ED Course Vital Signs 01/07/17 01/08/17 01/08/17 20:08 01:46 02:19 Temperature 97.4 F L 97.6 F Pulse Rate 72 70 73 Respiratory 18 16 14 Rate Blood Pressure 197/110 179/87 Blood Pressure 171/98 [Left] O2 Sat by Pulse 100 98 Oximetry 01/08/17 01/08/17 01/08/17 02:23 02:30 02:45 Temperature Pulse Rate 68 67 Respiratory 18 16 16 Rate Blood Pressure 143/87 Blood Pressure [Left] O2 Sat by Pulse 98 Oximetry 01/08/17 01/08/17 01/08/17 03:00 03:15 03:30 Temperature Pulse Rate 70 70 68 Respiratory 15 18 20 Rate Blood Pressure 146/93 155/90 149/91 Blood Pressure [Left] O2 Sat by Pulse Oximetry 01/08/17 01/08/17 01/08/17 03:45 05:00 05:15 Temperature Pulse Rate 75 68 65 Respiratory 14 16 12 Rate Blood Pressure 147/91 153/99 146/85 Blood Pressure [Left] O2 Sat by Pulse Oximetry 01/08/17 01/08/17 01/08/17 05:30 05:45 06:00 Temperature Pulse Rate 71 66 66 Respiratory 16 14 14 Rate Blood Pressure 146/94 153/97 152/99 Blood Pressure [Left] O2 Sat by Pulse Oximetry 01/08/17 01/08/17 01/08/17 06:45 07:00 07:15 Temperature Pulse Rate Respiratory Rate Blood Pressure 177/102 172/110 186/103 Blood Pressure [Left] O2 Sat by Pulse Oximetry 01/08/17 01/08/17 01/08/17 07:23 07:30 07:45 Temperature Pulse Rate 72 Respiratory Rate Blood Pressure 186/103 151/95 157/91 Blood Pressure [Left] O2 Sat by Pulse Oximetry 01/08/17 01/08/17 01/08/17 08:00 08:15 08:30 Temperature Pulse Rate Respiratory Rate Blood Pressure 167/102 155/107 163/95 Blood Pressure [Left] O2 Sat by Pulse Oximetry 01/08/17 01/08/17 01/08/17 08:45 09:00 09:15 Temperature Pulse Rate 68 Respiratory 17 Rate Blood Pressure 165/102 166/105 182/95 Blood Pressure [Left] O2 Sat by Pulse Oximetry 01/08/17 01/08/17 01/08/17 09:29 09:30 10:14 Temperature Pulse Rate 61 61 Respiratory 16 16 Rate Blood Pressure 182/93 Blood Pressure 162/108 [Left] O2 Sat by Pulse 99 Oximetry - Reevaluation(s) Reevaluation #1: Patient remained neurologically intact in the emergency department. Her headache had improved not resolved. She was admitted by nurse practitioner Michell the hospitalist service for further evaluation. 01/08/17 10:56 ED Medical Decision Making - Lab Data Result diagrams: 01/07/17 20:28 01/07/17 20:28 Laboratory Results - last 24 hr 01/07/17 01/07/17 01/07/17 20:28 20:28 20:28 WBC 5.8 RBC 3.90 Hgb 12.7 Hct 37.8 MCV 97 MCH 33 H MCHC 34 RDW 14.8 Plt Count 262 PT 12.6 INR 0.90 APTT 30.3 Sodium 135 L Potassium 3.3 L Chloride 99.7 Carbon Dioxide 26 Anion Gap 13 BUN 7 Creatinine 0.6 L Estimated GFR > 60 BUN/Creatinine Ratio 12 Glucose 89 Calcium 9.3 Urine Color Urine Turbidity Urine pH Ur Specific [place] Urine Protein Urine Glucose (UA) Urine Ketones Urine Blood Urine Nitrite Urine Bilirubin Urine Urobilinogen Ur Leukocyte Esterase Urine WBC (Auto) Urine RBC (Auto) U Epithel Cells (Auto) Urine HCG, Qual 01/07/17 21:17 WBC RBC Hgb Hct MCV MCH MCHC RDW Plt Count PT INR APTT Sodium Potassium Chloride Carbon Dioxide Anion Gap BUN Creatinine Estimated GFR BUN/Creatinine Ratio Glucose Calcium Urine Color Red Urine Turbidity Clear Urine pH 5.0 Ur Specific [place] 1.009 Urine Protein <15 mg/dl Urine Glucose (UA) Neg Urine Ketones Neg Urine Blood Lg Urine Nitrite Neg Urine Bilirubin Neg Urine Urobilinogen < 2.0 Ur Leukocyte Esterase Neg Urine WBC (Auto) 8.0 H Urine RBC (Auto) 35.0 U Epithel Cells (Auto) 3.0 Urine HCG, Qual Negative - Radiology Data Radiology results: report reviewed Critical care attestation.: If time is entered above; I have spent that time in minutes in the direct care of this critically ill patient, excluding procedure time. ED Disposition Clinical Impression: Transient visual loss of left eye, Hypokalemia, Essential hypertension Cephalalgia Qualifiers: Headache type: unspecified Headache chronicity pattern: acute headache Intractability: not intractable Qualified Code(s): R51 - Headache Disposition: DC-09 OP ADMIT IP TO THIS HOSP Is pt being admited?: Yes Does the pt Need Aspirin: Yes Condition: Stable Time of Disposition: 10:58
--- NOTE | 2017-01-08 07:15 | XRay Report ---
AP CHEST: HISTORY: Hypertension AP view of the chest demonstrates a normal mediastinal and cardiac contour with clear lungs and normal bony and soft tissue structures. IMPRESSION: Unremarkable AP chest.
[2017-01-08] MEDS ORDERED: NORVASC PO ONE (07:20)
[2017-01-08] MEDS ORDERED: DULCOLAX PR PRN (08:46)
[2017-01-08] MEDS ORDERED: APRESOLINE IV PRN (08:49)
[2017-01-08] MEDS ORDERED: ZOFRAN IV PRN (08:49)
--- NOTE | 2017-01-08 08:51 | History and Physical Report ---
<CYNTHIA KNUTSON - Last Filed: 01/08/17 12:14> History of Present Illness Date of examination: 01/08/17 Date of admission: 01/08/2017 Chief complaint: Facial numbness and headache History of present illness: Patient is a 41 years old female with past medical history of Asthma and hypertension presents to the emergency department for chief complains of left frontal headache, facial numbness and blurred vision. Patient reports she woke up Saturday01/06/2017 with a headache and an elevated blood pressure . She reports typically she doesn't get a headache with an elevated blood pressure, although she reported facial numbness, intermittent left blurred vision, slurred speech nausea and vomiting. She got worried and decided to to come to the emergency department for evaluation. She reported generalized weakness. She denies numbness to upper and lower extremity, facial asymmetry, motor deficits, neck stiffness, sick contact, head trauma or closed spaces Past History Past Medical History: hypertension, other (asthma) Past Surgical History: No surgical history Social history: denies: smoking, alcohol abuse Family history: hypertension Medications and Allergies Allergies Allergy/AdvReac Type Severity Reaction Status Date / Time coconut oil Allergy Angioedema Verified 05/07/16 00:57 Home Medications Medication Instructions Recorded Confirmed Last Taken Type Hydrochlorothiazide [Hctz] 25 mg PO QDAY #60 tablet 06/28/14 01/08/17 01/07/17 17:00 Rx Review of Systems Constitutional: no weight gain, no fever, no chills Ears, nose, mouth and throat: no decreased hearing, no nose pain, no nasal congestion, no nasal discharge Breasts: no change in shape, no swelling Cardiovascular: no orthopnea, no palpitations, no rapid/irregular heart beat Respiratory: no cough with sputum, no excessive sputum, no hemoptysis Gastrointestinal: no diarrhea, no constipation, no change in bowel habits Genitourinary Female: no post void dribbling, no incomplete emptying, no urge incontinence, no mixed incontinence Rectal: no incontinence, no bleeding Musculoskeletal: no neck pain, no arm numbness/tingling Integumentary: no redness, no sores Neurological: numbness, headaches, change in speech, other (blurred vision and slurred speech), no weakness, no parathesias, no convulsions, no confusion, no memory loss Psychiatric: anxiety, no memory loss, no change in sleep habits, no sleep disturbances, no insomnia, no hypersomnia Endocrine: no polydipsia, no polyuria, no nocturia, no flushing Hematologic/Lymphatic: no easy bruising, no easy bleeding Allergic/Immunologic: no wheezing Exam - Constitutional Vitals: Temp Pulse Resp BP Pulse Ox 97.6 F 72 14 186/103 98 01/08/17 01:46 01/08/17 07:23 01/08/17 06:00 01/08/17 07:23 01/08/17 02:23 General appearance: Present: no acute distress - EENT Eyes: Present: PERRL ENT: hearing intact - Neck Neck: Present: supple - Respiratory Respiratory effort: normal Respiratory: bilateral: CTA - Cardiovascular Rhythm: regular Heart Sounds: Present: S1 & S2 - Extremities Extremities: no ischemia - Abdominal General gastrointestinal: Present: soft, non-tender Female genitourinary: Present: deferred - Rectal Rectal Exam: deferred - Integumentary Integumentary: Present: clear, warm, dry - Musculoskeletal Musculoskeletal: strength equal bilaterally - Psychiatric Psychiatric: appropriate mood/affect - Neurologic Neurologic: moves all extremities - Allied Health Allied health notes reviewed: nursing Results - Labs CBC & Chem 7: 01/07/17 20:28 01/07/17 20:28 Labs: Laboratory Last Values WBC 5.8 K/mm3 (4.5-11.0) 01/07/17 20:28 RBC 3.90 M/mm3 (3.65-5.03) 01/07/17 20:28 Hgb 12.7 gm/dl (10.1-14.3) 01/07/17 20:28 Hct 37.8 % (30.3-42.9) 01/07/17 20:28 MCV 97 fl (79-97) 01/07/17 20:28 MCH 33 pg (28-32) H 01/07/17 20:28 MCHC 34 % (30-34) 01/07/17 20:28 RDW 14.8 % (13.2-15.2) 01/07/17 20:28 Plt Count 262 K/mm3 (140-440) 01/07/17 20:28 PT 12.6 Sec. (12.2-14.9) 01/07/17 20:28 INR 0.90 (0.87-1.13) 01/07/17 20: APTT 30.3 Sec. (24.2-36.6) 01/07/17 20:28 Sodium 135 mmol/L (137-145) L 01/07/17 20:28 Potassium 3.3 mmol/L (3.6-5.0) L 01/07/17 20: Chloride 99.7 mmol/L (98-107) 01/07/17 20:28 Carbon Dioxide 26 mmol/L (22-30) 01/07/17 20:28 Anion Gap 13 mmol/L 01/07/17 20:28 BUN 7 mg/dL (7-17) 01/07/17 20: Creatinine 0.6 mg/dL (0.7-1.2) L 01/07/17 20: Estimated GFR > 60 ml/min 01/07/17 20: BUN/Creatinine Ratio 12 % 01/07/17 20: Glucose 89 mg/dL (65-100) 01/07/17 20: Calcium 9.3 mg/dL (8.4-10.2) 01/07/17 20: Urine Color Red (Yellow) 01/07/17 21: Urine Turbidity Clear (Clear) 01/07/17 21: Urine pH 5.0 (5.0-7.0) 01/07/17: Ur Specific [place] 1.009 (1.003-1.030) 01/07/17 21:17 Urine Protein <15 mg/dl mg/dL (Negative) 01/07/17 21:17 Urine Glucose (UA) Neg mg/dL (Negative) 01/07/17 21:17 Urine Ketones Neg mg/dL (Negative) 01/07/17 21:17 Urine Blood Lg (Negative) 01/07/17 21:17 Urine Nitrite Neg (Negative) 01/07/17 21: Urine Bilirubin Neg (Negative) 01/07/17 21: Urine Urobilinogen < 2.0 mg/dL (<2.0) 01/07/17 21:17 Ur Leukocyte Esterase Neg (Negative) 01/07/17 21:17 Urine WBC (Auto) 8.0 /HPF (0.0-6.0) H 01/07/17 21: Urine RBC (Auto) 35.0 /HPF (0.0-6.0) 01/07/17 21:17 U Epithel Cells (Auto) 3.0 /HPF (0-13.0) 01/07/17 21:17 Urine HCG, Qual Negative (Negative) 01/07/17 21:17 - Imaging and Cardiology Chest x-ray: image reviewed CT Scan - head: image reviewed (no acute intracranial processes) MRI - head: image reviewed (unremarkable) Assessment and Plan Assessment and plan: Patient is a 41 years old female with past medical history of Asthma and hypertension presents to the emergency department for chief complains of left frontal headache, facial numbness and blurred vision. Patient reports she woke up Saturday01/06/2017 with a headache and an elevated blood pressure . She reports typically she doesn't get a headache with an elevated blood pressure, although she reported facial numbness, intermittent left blurred vision, slurred speech nausea and vomiting. Hypertension emergency Optimized home antihypertensive medication IV hydralazine for SBP>160 Closely monitor electrolytes Suspected stroke/slurred speech and facial numbness CT of the head unremarkable. MRI of the brain ordered We will obtain VL carotid dupplex Frequent neuro checks. Physical therapy consulted Neurology consulted Supportive care Hypokalemia Most likely due to vomiting Replaced Closely monitor electrolytes Mild Hyponatremia IV fluid that will correct it Closely monitor electrolytes DVT prophylaxis Lovenox Advance Directives: Yes VTE prophylaxis?: Chemical Contraindication Mechanical VTE Prophylaxis: Treatment Not Indicated Plan of care discussed with patient/family: Yes <HECTOR BERMUDEZ S - Last Filed: 01/08/17 14:55> History of Present Illness Date of admission: 01/08/17 08:46 Medications and Allergies Active Meds: Active Medications Acetaminophen (Tylenol) 650 mg PO Q4H PRN PRN Reason: Pain MILD(1-3)/Fever >100.5/MENG Amlodipine Besylate (Norvasc) 10 mg PO QDAY [facility] Last Admin: 01/08/17 09:29 Dose: 10 mg Bisacodyl (Dulcolax) 10 mg MT QDAY PRN PRN Reason: Constipation unrelieved by MOM Enoxaparin Sodium (Lovenox) 40 mg SUB-Q QDAY [facility] Last Admin: 01/08/17 09:30 Dose: 40 mg Hydralazine HCl (Apresoline) 10 mg IV Q4H PRN PRN Reason: Blood Pressure Hydrochlorothiazide (Hctz) 25 mg PO QDAY [facility] Last Admin: 01/08/17 09:29 Dose: 25 mg Ondansetron HCl (Zofran) 4 mg IV Q4H PRN PRN Reason: Nausea And Vomiting Exam - Constitutional Vitals: Temp Pulse Resp BP Pulse Ox 97.6 F 61 16 162/108 99 01/08/17 01:46 01/08/17 10:14 01/08/17 10:14 01/08/17 10:14 01/08/17 10:14 Results - Labs CBC & Chem 7: 01/07/17 20:28 01/07/17 20:28 Labs: Laboratory Last Values WBC 5.8 K/mm3 (4.5-11.0) 01/07/17 20:28 RBC 3.90 M/mm3 (3.65-5.03) 01/07/17 20:28 Hgb 12.7 gm/dl (10.1-14.3) 01/07/17 20:28 Hct 37.8 % (30.3-42.9) 01/07/17 20:28 MCV 97 fl (79-97) 01/07/17 20:28 MCH 33 pg (28-32) H 01/07/17 20:28 MCHC 34 % (30-34) 01/07/17 20:28 RDW 14.8 % (13.2-15.2) 01/07/17 20:28 Plt Count 262 K/mm3 (140-440) 01/07/17 20:28 PT 12.6 Sec. (12.2-14.9) 01/07/17 20:28 INR 0.90 (0.87-1.13) 01/07/17 20:28 APTT 30.3 Sec. (24.2-36.6) 01/07/17 20:28 Sodium 135 mmol/L (137-145) L 01/07/17 20:28 Potassium 3.3 mmol/L (3.6-5.0) L 01/07/17 20:28 Chloride 99.7 mmol/L (98-107) 01/07/17 20:28 Carbon Dioxide 26 mmol/L (22-30) 01/07/17 20:28 Anion Gap 13 mmol/L 01/07/17 20:28 BUN 7 mg/dL (7-17) 01/07/17 20: Creatinine 0.6 mg/dL (0.7-1.2) L 01/07/17 20: Estimated GFR > 60 ml/min 01/07/17 20: BUN/Creatinine Ratio 12 % 01/07/17 20:28 Glucose 89 mg/dL (65-100) 01/07/17 20: POC Glucose 89 (70-105) 01/08/17 09:38 Calcium 9.3 mg/dL (8.4-10.2) 01/07/17 20: Urine Color Red (Yellow) 01/07/17 21: Urine Turbidity Clear (Clear) 01/07/17: Urine pH 5.0 (5.0-7.0) 01/07/17 21: Ur Specific [place] 1.009 (1.003-1.030) 01/07/17 21: Urine Protein <15 mg/dl mg/dL (Negative) 01/07/17: Urine Glucose (UA) Neg mg/dL (Negative) 01/07/17 21: Urine Ketones Neg mg/dL (Negative) 01/07/17 21: Urine Blood Lg (Negative) 01/07/17: Urine Nitrite Neg (Negative) 01/07/17: Urine Bilirubin Neg (Negative) 01/07/17 21: Urine Urobilinogen < 2.0 mg/dL (<2.0) 01/07/17 21: Ur Leukocyte Esterase Neg (Negative) 01/07/17: Urine WBC (Auto) 8.0 /HPF (0.0-6.0) H 01/07/17: Urine RBC (Auto) 35.0 /HPF (0.0-6.0) 01/07/17: U Epithel Cells (Auto) 3.0 /HPF (0-13.0) 01/07/17: Urine HCG, Qual Negative (Negative) 01/07/17 21: Assessment and Plan Assessment and plan: I saw and evaluated the patient. I agree with the findings and the plan of care as documented in the Nurse Practitioner's~note, with the following corrections and additions.
[2017-01-08] MEDS: HCTZ PO SCH (09:29)
[2017-01-08] MEDS: NORVASC PO SCH (09:29)
[2017-01-08] MEDS: LOVENOX SUB-Q SCH (09:30)
[2017-01-08] MEDS ORDERED: NON-FORMULARY (Lisinopril/Hydrochlorothiazide [Zestoretic 10-12.5 Mg] 1 TAB) PO SCH (10:00)
[2017-01-08] MEDS ORDERED: K-DUR PO ONE (10:57)
[2017-01-08] MEDS ORDERED: ASPIRIN PO ONE (10:58)
--- NOTE | 2017-01-08 11:16 | Magnetic Resonance Report ---
MRI OF THE BRAIN WITHOUT CONTRAST: HISTORY: CVA PROCEDURE: Multiplanar, multisequence MR imaging of the brain without IV contrast was performed. FINDINGS: The brain parenchyma signal intensity and its christie white interface are within normal limits on all sequences. No evidence for acute ischemia, hemorrhage or mass. No chronic infarct or extra-axial fluid collection. The midline structures are central. The basal cisterns are patent. Normal ventricular size. The orbital cavities and sella turcica demonstrate no abnormality. The visualized paranasal sinuses and mastoid air cells are well aerated. IMPRESSION: Unremarkable non-enhanced MRI of the brain.
[2017-01-08] MEDS: TYLENOL PO PRN (18:44)
[2017-01-09 04:43] LABS: Hematocrit 41.4 % (30.3-42.9); Hemoglobin 13.8 gm/dl (10.1-14.3); Mean Corpuscular HGB Conc 33 % (30-34); Mean Corpuscular Hemoglobin 33 pg (28-32); Mean Corpuscular Volume 98 fl (79-97); Platelet Count 258 K/mm3 (140-440); Red Blood Count 4.22 M/mm3 (3.65-5.03); Red Cell Distribution Width 15.2 % (13.2-15.2); White Blood Count 4.5 K/mm3 (4.5-11.0)
[2017-01-09 05:10] LABS: Anion Gap 17 mmol/L; BUN/Creatinine Ratio 14; Blood Urea Nitrogen 10 mg/dL (7-17); Calcium 9.2 mg/dL (8.4-10.2); Carbon Dioxide 24 mmol/L (22-30); Chloride 100.9 mmol/L (98-107); Glucose 87 mg/dL (65-100); Potassium 4.1 mmol/L (3.6-5.0); Sodium 138 mmol/L (137-145)
[2017-01-09 05:38] LABS: Basophils % (Manual) 0 % (0.0-1.8); Blastocytes % (Manual) 0 %
[2017-01-09 05:39] LABS: Diff Status Complete; Platelet Estimate Consistent w Auto
--- NOTE | 2017-01-09 08:23 | Consultation ---
History of Present Illness Consult date: 01/09/17 History of present illness: patient seen and full neuro consult dictated she has normal neuro exam now and mneuro w/u for strioke is pending patient has positive hx of HTN and had sevre headaches a/w left facial numbness and weakness ? prolonged TIA ? prior on HCTZ for BP no prior episodes I would get full stroke w/u which I will review based on risk factors suspect stroke or equivalent Past History Past Medical History: hypertension, other (asthma) Past Surgical History: No surgical history Social history: denies: smoking, alcohol abuse Family history: hypertension Medications and Allergies Allergies Allergy/AdvReac Type Severity Reaction Status Date / Time coconut oil Allergy Angioedema Verified 05/07/16 00:57 Home Medications Medication Instructions Recorded Confirmed Last Taken Type Hydrochlorothiazide [Hctz] 25 mg PO QDAY #60 tablet 06/28/14 01/08/17 01/07/17 17:00 Rx Active Meds: Active Medications Acetaminophen (Tylenol) 650 mg PO Q4H PRN PRN Reason: Pain MILD(1-3)/Fever >100.5/MENG Last Admin: 01/08/17 18:44 Dose: 650 mg Amlodipine Besylate (Norvasc) 10 mg PO QDAY [facility] Last Admin: 01/08/17 09:29 Dose: 10 mg Bisacodyl (Dulcolax) 10 mg NE QDAY PRN PRN Reason: Constipation unrelieved by MOM Enoxaparin Sodium (Lovenox) 40 mg SUB-Q QDAY [facility] Last Admin: 01/08/17 09:30 Dose: 40 mg Hydralazine HCl (Apresoline) 10 mg IV Q4H PRN PRN Reason: Blood Pressure Hydrochlorothiazide (Hctz) 25 mg PO QDAY [facility] Last Admin: 01/08/17 09:29 Dose: 25 mg Ondansetron HCl (Zofran) 4 mg IV Q4H PRN PRN Reason: Nausea And Vomiting Physical Examination - Vital Signs Vital Signs: Vital Signs Temp Pulse Resp BP Pulse Ox 97.4 F L 72 18 197/110 100 01/07/17 20:08 01/07/17 20:08 01/07/17 20:08 01/07/17 20:08 01/07/17 20:08 Results - Laboratory Findings CBC and BMP: 01/09/17 04:15 11/22/17 04:15 Abnormal Lab Findings: Abnormal Labs 01/07/17 01/07/17 01/07/17 20:28 20:28 21:17 MCV MCH 33 H Seg Neuts % (Manual) Lymphocytes % (Manual) Eosinophils % (Manual) Seg Neutrophils # Man Sodium 135 L Potassium 3.3 L Creatinine 0.6 L Urine WBC (Auto) 8.0 H 01/09/17 04:15 MCV 98 H MCH 33 H Seg Neuts % (Manual) 23.0 L Lymphocytes % (Manual) 63.0 H Eosinophils % (Manual) 8.0 H Seg Neutrophils # Man 1.0 L Sodium Potassium Creatinine Urine WBC (Auto)
[2017-01-09] MEDS: TYLENOL PO PRN ×2 (08:57→13:21)
[2017-01-09] MEDS: NORVASC PO SCH (09:01)
[2017-01-09] MEDS: HCTZ PO SCH (09:01)
[2017-01-09] MEDS: LOVENOX SUB-Q SCH (09:03)
[2017-01-09 16:32] VITALS: BP 151/102
== END 2017-01-09 18:55 | disposition home or self-care (01) | DRG 305 ==
LOC: ED 19:30 → 3A 01-08 08:46
PROVIDERS: ADMIT Internal Medicine; ATTEND Internal Medicine
DX: I16.1 Hypertensive emergency (principal); E87.1 Hypo-osmolality and hyponatremia; E87.6 Hypokalemia; I10 Essential (primary) hypertension; H54.62 Unqualified visual loss, left eye, normal vision right eye; J45.909 Unspecified asthma, uncomplicated; Z82.49 Family history of ischemic heart disease and other diseases of the circulatory system; Z91.048 Other nonmedicinal substance allergy status; Z79.899 Other long term (current) drug therapy
CPT/HCPCS: 36415; 70450; 70551; 71010; 80048; 81001; 81025; 82962; 85007; 85025; 85027; 85610; 85730; 93880; 99285; 99406; J1650

== ENCOUNTER 2017-03-19 08:51 | Emergency (ER) | payer OTHER ==
[2017-03-19 10:34] LABS: Basophils # (Auto) 0.1 K/mm3 (0.0-0.1); Basophils % (Auto) 0.9 % (0.0-1.8); Eosinophils # (Auto) 0.2 K/mm3 (0.0-0.4); Eosinophils % (Auto) 2.6 % (0.0-4.3); Hematocrit 40.9 % (30.3-42.9); Hemoglobin 13.6 gm/dl (10.1-14.3); Lymphocytes # (Auto) 2.2 K/mm3 (1.2-5.4); Lymphocytes % (Auto) 29.1 % (13.4-35.0); Mean Corpuscular HGB Conc 33 % (30-34); Mean Corpuscular Hemoglobin 32 pg (28-32); Mean Corpuscular Volume 98 fl (79-97); Monocytes # (Auto) 0.5 K/mm3 (0.0-0.8); Monocytes % (Auto) 6.9 % (0.0-7.3); Platelet Count 239 K/mm3 (140-440); Red Cell Distribution Width 15.6 % (13.2-15.2)
[2017-03-19 10:48] LABS: Alanine Aminotransferase 10 units/L (7-56); Albumin 4.4 g/dL (3.9-5); BUN/Creatinine Ratio 10; Blood Urea Nitrogen 6 mg/dL (7-17); Calcium 8.8 mg/dL (8.4-10.2); Hemolysis Index 15; Lipase 9 units/L (13-60)
[2017-03-19 13:21] LABS: Bacteria,Urine 1+ /HPF (Negative); Bilirubin,Urine NEG (Negative); Blood,Urine NEG (Negative); Color,Urine Yellow (Yellow); Mucus,Urine FEW /HPF; Nitrite,Urine NEG (Negative); Protein,Urine <15 mg/dL mg/dL (Negative); Urobilinogen,Urine < 2.0 mg/dL (<2.0)
[2017-03-19 13:24] LABS: HCG Qualitative,Urine Negative (Negative)
[2017-03-19] MEDS ORDERED: ZOFRAN ODT PO ONE (17:01)
--- NOTE | 2017-03-19 17:42 | Emergency Department Report ---
ED N/V/D HPI - General Chief complaint: Nausea/Vomiting/Diarrhea Stated complaint: VOMITING Time Seen by Provider: 03/19/17 16:51 Source: patient Mode of arrival: Ambulatory Limitations: No Limitations - History of Present Illness Initial comments: Patient is complaining of nausea and vomiting which started yesterday and has progressively gotten worse. She denies any diarrhea. Also complains of generalized body aches. Denies any chest pain or shortness of breath. Patient says she has as been unable to keep anything down. She was a complains of positive nasal congestion and no fever MD complaint: nausea, vomiting -: Gradual Description of Vomiting: food contents, watery Associated Abdominal Pain: No - Related Data Previous Rx's Medication Instructions Recorded Last Taken Type Losartan [Cozaar] 100 mg PO QDAY #30 tablet 01/09/17 Unknown Rx Famotidine [Pepcid] 20 mg PO BID #10 tablet 03/19/17 Unknown Rx Ondansetron [Zofran Odt] 4 mg PO Q6H PRN #14 tab.rapdis 03/19/17 Unknown Rx Allergies Allergy/AdvReac Type Severity Reaction Status Date / Time coconut oil Allergy Angioedema Verified 05/07/16 00:57 ED Review of Systems ROS: Stated complaint: VOMITING Other details as noted in HPI Comment: All other systems reviewed and negative ED Past Medical Hx - Past Medical History Previous Medical History?: Yes Hx Hypertension: Yes (uncontrolled) Hx Arthritis: Yes Additional medical history: bronchitis. FIBROIDS - Surgical History Past Surgical History?: Yes Additional Surgical History: ectopic preg. Neck mass bx - Social History Smoking Status: Current Every Day Smoker Substance Use Type: Prescribed - Medications Home Medications: Home Medications Medication Instructions Recorded Confirmed Last Taken Type Losartan [Cozaar] 100 mg PO QDAY #30 tablet 01/09/17 Unknown Rx Famotidine [Pepcid] 20 mg PO BID #10 tablet 03/19/17 Unknown Rx Ondansetron [Zofran Odt] 4 mg PO Q6H PRN #14 tab.rapdis 03/19/17 Unknown Rx ED Physical Exam - General Limitations: No Limitations General appearance: alert, in no apparent distress - Head Head exam: Present: atraumatic, normocephalic - Eye Eye exam: Present: normal appearance - ENT ENT exam: Present: normal orophraynx, mucous membranes moist, other (positive nasal congestion) - Neck Neck exam: Present: normal inspection. Absent: tenderness - Respiratory Respiratory exam: Present: normal lung sounds bilaterally. Absent: respiratory distress - Cardiovascular Cardiovascular Exam: Present: regular rate, normal rhythm. Absent: systolic murmur, diastolic murmur, rubs, gallop - GI/Abdominal GI/Abdominal exam: Present: soft, tenderness (mild tenderness in the suprapubic area. No rebound tenderness), normal bowel sounds - Rectal Rectal exam: Present: deferred - Extremities Exam Extremities exam: Present: normal inspection - Back Exam Back exam: Present: normal inspection. Absent: full ROM - Neurological Exam Neurological exam: Present: alert, oriented X3 - Psychiatric Psychiatric exam: Present: normal affect, normal mood - Skin Skin exam: Present: warm, dry, intact, normal color. Absent: rash ED Course Vital Signs 03/19/17 03/19/17 03/19/17 09:49 17:43 19:05 Temperature 98.1 F Pulse Rate 78 82 70 Respiratory 16 18 18 Rate Blood Pressure 177/115 Blood Pressure 185/92 136/89 [Right] O2 Sat by Pulse 100 99 98 Oximetry - Reevaluation(s) Reevaluation #1: 03/19/17 19:15 Patient able to tolerate orally before being discharged. ED Medical Decision Making - Lab Data Result diagrams: 03/19/17 10:23 03/19/17 10:23 Critical care attestation.: If time is entered above; I have spent that time in minutes in the direct care of this critically ill patient, excluding procedure time. ED Disposition Clinical Impression: Viral syndrome, Gastritis, Uncontrolled hypertension Disposition: - TO HOME OR SELFCARE Is pt being admited?: No Does the pt Need Aspirin: No Condition: Stable Instructions: Gastritis (ED), Viral Syndrome (ED), Hypertension (ED) Additional Instructions: Follow-up with your primary care physician tomorrow about adjusting your blood pressure medications. Also take [id number] Tylenol Cold and sinus medication as needed to help your congestion Prescriptions: Famotidine [Pepcid] 20 mg PO BID #10 tablet Ondansetron [Zofran Odt] 4 mg PO Q6H PRN #14 tab.rapdis PRN Reason: nausea and vomiting Referrals: JONATHAN TURNER [Other] - 24 Hours Time of Disposition: 19:06 Print Language: BARBADIAN
[2017-03-19] MEDS ORDERED: TYLENOL PO ONE (17:47)
[2017-03-19] MEDS ORDERED: COZAAR PO ONE (17:47)
[2017-03-19] MEDS ORDERED: CATAPRES PO ONE (17:48)
[2017-03-19 19:06] VITALS: BP 136/89
[2017-03-19] MEDS ORDERED: CORDARONE 150 MG in D5W 100 ML IV ONE (19:23)
[2017-03-19] MEDS ORDERED: CORDARONE 900 MG in D5W 482 ML IV SCH (20:00)
== END 2017-03-19 19:22 | disposition home or self-care (01) ==
LOC: ED 08:51
DX: K29.70 Gastritis, unspecified, without bleeding (principal); B34.9 Viral infection, unspecified; I10 Essential (primary) hypertension; M19.90 Unspecified osteoarthritis, unspecified site; F17.200 Nicotine dependence, unspecified, uncomplicated; D21.9 Benign neoplasm of connective and other soft tissue, unspecified; Z91.018 Allergy to other foods
CPT/HCPCS: 36415; 80053; 81001; 81025; 83690; 83735; 84484; 85025; 99283; J0282; Q0162

== ENCOUNTER 2018-02-26 08:53 | Inpatient (IN) | payer OTHER ==
[2018-02-26] MEDS ORDERED: ASPIRIN PO ONE (09:05)
[2018-02-26 09:30] LABS: Basophils # (Auto) 0.1 K/mm3 (0.0-0.1); Basophils % (Auto) 1.5 % (0.0-1.8); Eosinophils # (Auto) 0.4 K/mm3 (0.0-0.4); Eosinophils % (Auto) 5.6 % (0.0-4.3); Hematocrit 36.4 % (30.3-42.9); Hemoglobin 12.4 gm/dl (10.1-14.3); Lymphocytes % (Auto) 31.8 % (13.4-35.0); Mean Corpuscular HGB Conc 34 % (30-34); Mean Corpuscular Volume 96 fl (79-97); Monocytes # (Auto) 0.5 K/mm3 (0.0-0.8); Platelet Count 317 K/mm3 (140-440); Red Blood Count 3.78 M/mm3 (3.65-5.03); Red Cell Distribution Width 14.5 % (13.2-15.2)
[2018-02-26 09:46] LABS: BUN/Creatinine Ratio 13; Blood Urea Nitrogen 9 mg/dL (7-17); Calcium 8.6 mg/dL (8.4-10.2); Hemolysis Index 3
--- NOTE | 2018-02-26 10:04 | Emergency Department Report ---
ED Chest Pain HPI - General Chief Complaint: Chest Pain Stated Complaint: CHEST PAIN Time Seen by Provider: 02/26/18 09:40 Source: patient Mode of arrival: Ambulatory Limitations: No Limitations - History of Present Illness Initial Comments: Patient is a 43-year-old female up since marginal complaints of chest pressure in the center of her chest. Patient states the symptoms started about 3 hours ago. Patient states the pain is radiating to her left neck and left upper extremity. Patient states the pain is a 9 out of 10. Patient states the pain is better with rest and worse with exertion. Patient is also complaining of slight dyspnea on exertion. MD Complaint: chest pain -: Sudden Onset: during rest Pain Location: substernal, left chest Pain Radiation: LUE, neck Severity: severe Severity scale (0 -10): 9 Quality: pressure Consistency: constant Improves With: rest Worsens With: exertion re: dyspnea. denies: nausea, vomting, diaphoresis, sense of impending doom Other Symptoms: denies: cough, fever, syncope, rash, acid taste in mouth, leg swelling, palpitations, burping Treatments Prior to Arrival: none Aspirin use within the Past 7 Days: (0) No - Related Data On Oral Contraceptives: No Home Medications Medication Instructions Recorded Confirmed Last Taken Ibuprofen 800 mg PO BID PRN 02/26/18 02/26/18 Unknown amLODIPine [Norvasc] 10 mg PO DAILY 02/26/18 02/26/18 02/26/18 hydroCHLOROthiazide [HCTZ] 25 mg PO DAILY 02/26/18 02/26/18 02/26/18 Previous Rx's Medication Instructions Recorded Last Taken Type Losartan [Cozaar] 100 mg PO QDAY #30 tablet 01/09/17 02/26/18 Rx Allergies Allergy/AdvReac Type Severity Reaction Status Date / Time coconut oil Allergy Angioedema Verified 05/07/16 00:57 Heart Score - HEART Score History: Moderately suspicious EKG: Non-specific Age: < 45 Risk factors: 1-2 risk factors Troponin: < normal limit HEART Score: 3 ED Review of Systems ROS: Stated complaint: CHEST PAIN Other details as noted in HPI Constitutional: denies: chills, fever Eyes: denies: eye pain, eye discharge, vision change ENT: denies: ear pain, throat pain Respiratory: SOB with exertion. denies: cough, shortness of breath, wheezing Cardiovascular: chest pain. denies: palpitations Endocrine: no symptoms reported Gastrointestinal: denies: abdominal pain, nausea, diarrhea Genitourinary: denies: urgency, dysuria, discharge Musculoskeletal: denies: back pain, joint swelling, arthralgia Skin: denies: rash, lesions Neurological: denies: headache, weakness, paresthesias Psychiatric: denies: anxiety, depression Hematological/Lymphatic: denies: easy bleeding, easy bruising ED Past Medical Hx - Past Medical History Previous Medical History?: Yes Hx Hypertension: Yes (uncontrolled) Hx Arthritis: Yes Additional medical history: bronchitis. FIBROIDS - Surgical History Past Surgical History?: Yes Additional Surgical History: ectopic preg. Neck mass bx - Family History Family history: no significant - Social History Smoking Status: Current Every Day Smoker Substance Use Type: None - Medications Home Medications: Home Medications Medication Instructions Recorded Confirmed Last Taken Type Losartan [Cozaar] 100 mg PO QDAY #30 tablet 01/09/17 02/26/18 02/26/18 Rx Ibuprofen 800 mg PO BID PRN 02/26/18 02/26/18 Unknown History amLODIPine [Norvasc] 10 mg PO DAILY 02/26/18 02/26/18 02/26/18 History hydroCHLOROthiazide [HCTZ] 25 mg PO DAILY 02/26/18 02/26/18 02/26/18 History ED Physical Exam - General Limitations: No Limitations General appearance: alert, in no apparent distress - Head Head exam: Present: atraumatic, normocephalic - Eye Eye exam: Present: normal appearance - ENT ENT exam: Present: mucous membranes moist - Neck Neck exam: Present: normal inspection - Respiratory Respiratory exam: Present: normal lung sounds bilaterally. Absent: respiratory distress - Cardiovascular Cardiovascular Exam: Present: regular rate, normal rhythm. Absent: systolic mu rmur, diastolic murmur, rubs, gallop - GI/Abdominal GI/Abdominal exam: Present: soft, normal bowel sounds - Extremities Exam Extremities exam: Present: normal inspection - Back Exam Back exam: Present: normal inspection - Neurological Exam Neurological exam: Present: alert, oriented X3 - Psychiatric Psychiatric exam: Present: normal affect, normal mood - Skin Skin exam: Present: warm, dry, intact, normal color. Absent: rash ED Course Vital Signs 02/26/18 02/26/18 02/26/18 09:02 09:46 09:49 Temperature 98.6 F 98.4 F Pulse Rate 80 71 82 Respiratory 18 18 18 Rate Blood Pressure 110/75 Blood Pressure 105/69 [Right] O2 Sat by Pulse 100 100 100 Oximetry 02/26/18 02/26/18 02/26/18 09:50 10:00 10:10 Temperature Pulse Rate 71 70 Respiratory 22 9 L Rate Blood Pressure 105/69 115/77 105/69 Blood Pressure [Right] O2 Sat by Pulse 98 99 99 Oximetry 02/26/18 02/26/18 10:20 10:30 Temperature Pulse Rate 70 Respiratory 19 Rate Blood Pressure 105/69 123/80 Blood Pressure [Right] O2 Sat by Pulse 98 98 Oximetry - Reevaluation(s) Reevaluation #1: Discussed all results with patient. Patient agrees with plan of care and admission. Patient admitted to the hospitalist service. 02/26/18 10:02 - Consultations Consultation #1: Hospitalist consult for admission. Hospitalist to admit patient and assume care of patient. Bridge orders placed 02/26/18 10:01 ALICE score - Alice Score Age > 65: (0) No Aspirin use within the Past 7 Days: (0) No 3 or more CAD Risk Factors: (0) No 2 or more Angina events in past 24 hrs: (0) No Known CAD with more than 50% Stenosis: (0) No Elevated Cardiac Markers: (0) No ST Deviation Greater than 0.5mm: (0) No ALICE Score: 0 ED Medical Decision Making - Lab Data Result diagrams: 02/26/18 09:17 02/26/18 09:17 - EKG Data -: EKG Interpreted by Sd EKG shows normal: sinus rhythm, axis, intervals, QRS complexes, ST-T waves Rate: normal - Medical Decision Making She is a 43-year-old female who presents to emergency with complaints of chest pain. Patient admitted to the hospital service for further evaluation treatment. Patient found to have a normal cardiac workup an EKG. Patient's potassium was low. Patient will be given potassium replacement. - Differential Diagnosis chest pain. ACS. Shortness of breath.Exertion. Critical Care Time: Yes Critical care attestation.: If time is entered above; I have spent that time in minutes in the direct care of this critically ill patient, excluding procedure time. Critical Care Time: 35 minutes ED Disposition Clinical Impression: Hypokalemia, Essential hypertension, BELTRE (dyspnea on exertion) Chest pain Qualifiers: Chest pain type: unspecified Qualified Code(s): R07.9 - Chest pain, unspecified Disposition: DC-09 OP ADMIT IP TO THIS HOSP Is pt being admited?: Yes Does the pt Need Aspirin: No Condition: Critical Time of Disposition: 10:02
[2018-02-26] MEDS ORDERED: KCL 20MEQ/100ML 20 MEQ/100 ML BAG IV ONE (10:09)
[2018-02-26] MEDS ORDERED: ASPIRIN ONE (10:35)
--- NOTE | 2018-02-26 10:38 | XRay Report ---
AP CHEST: HISTORY: Chest pain, dyspnea on exertion AP view of the chest demonstrates a normal mediastinal and cardiac contour with clear lungs and normal bony and soft tissue structures. No change since 01/08/17. IMPRESSION: Unremarkable AP chest.
[2018-02-26] MEDS ORDERED: SODIUM CHLORIDE FLUSH SYRINGE 10 ML IV PRN (10:48)
[2018-02-26] MEDS ORDERED: MILK OF MAGNESIA PO PRN (10:48)
[2018-02-26] MEDS ORDERED: DULCOLAX PR PRN (10:48)
[2018-02-26] MEDS ORDERED: NARCAN 0.4 MG/1 ML IV PRN (10:48)
[2018-02-26] MEDS ORDERED: PROVENTIL IH PRN (10:48)
[2018-02-26] MEDS ORDERED: ZOFRAN IV PRN (10:48)
[2018-02-26] MEDS ORDERED: MORPHINE IV PRN (10:48)
--- NOTE | 2018-02-26 10:52 | History and Physical Report ---
History of Present Illness Date of examination: 02/26/18 Date of admission: 02/26/18 10:03 Chief complaint: SHORTNESS OF BREATH AND CHEST PAIN History of present illness: Patient is a 44-year-old female with past medical history of tobacco use who presents to the hospital with complaint of chest tenderness either about 3 hours prior to presentation. The patient dispensed FROM bed radiate into her left neck and left upper extremity and down her neck lateral side. She rates it a 10/10 at its worse and also associated with worsening dyspnea on exertion. The patient otherwise denies any nausea vomiting or diarrhea denies any prior episodes. She denies any orthopnea or syncope. Past History Past Medical History: other Past Surgical History: Other (tobacco abuse) Social history: smoking Family history: no significant family history Medications and Allergies Allergies Allergy/AdvReac Type Severity Reaction Status Date / Time coconut oil Allergy Angioedema Verified 05/07/16 00:57 Home Medications Medication Instructions Recorded Confirmed Last Taken Type Losartan [Cozaar] 100 mg PO QDAY #30 tablet 01/09/17 02/26/18 02/26/18 Rx Ibuprofen 800 mg PO BID PRN 02/26/18 02/26/18 Unknown History amLODIPine [Norvasc] 10 mg PO DAILY 02/26/18 02/26/18 02/26/18 History hydroCHLOROthiazide [HCTZ] 25 mg PO DAILY 02/26/18 02/26/18 02/26/18 History Active Meds: Active Medications Amlodipine Besylate (Norvasc) 10 mg PO DAILY [facility] Hydrochlorothiazide (Hctz) 25 mg PO DAILY [facility] Potassium Chloride (Kcl 10meq/100ml) 10 meq in 100 mls @ 100 mls/hr IV Q1H [facility] Stop: 02/26/18 12:59 Miscellaneous Medication (Losartan [Cozaar]) 100 mg PO QDAY [facility] Review of Systems All systems: negative Constitutional: no weight gain, no fever, no chills, no sweats, no fatigue, no weakness Cardiovascular: chest pain, shortness of breath, no orthopnea, no palpitations, no rapid/irregular heart beat, no edema, no syncope, no lightheadedness Respiratory: shortness of breath, dyspnea on exertion Exam - Physical Exam Narrative exam: VITAL SIGNS: Reviewed. GENERAL: The patient appeared well nourished and normally developed. Vital si gns as documented. HEAD: No signs of head trauma. EYES: Pupils are equal. Extraocular motions intact. EARS: Hearing grossly intact. MOUTH: Oropharynx is normal. NECK: No adenopathy, no JVD. CHEST: Chest with diminished with tachypnea otherwise no wheezing no rales or rhonchi CARDIAC: Regular rate and rhythm. S1 and S2, without murmurs, gallops, or rubs. VASCULAR: No Edema. Peripheral pulses normal and equal in all extremities. ABDOMEN: Soft, without detectable tenderness. No sign of distention. No rebound or guarding, and no masses palpated. Bowel Sounds normal. MUSCULOSKELETAL: Good range of motion of all major joints. Extremities without clubbing, cyanosis or edema. NEUROLOGIC EXAM: Alert and oriented x 3. No focal sensory or strength deficits. Speech normal. Follows commands. PSYCHIATRIC: Mood normal. SKIN: No rash or lesions. - Constitutional Vitals: Temp Pulse Resp BP Pulse Ox 98.4 F 82 18 105/69 100 02/26/18 09:49 02/26/18 09:49 02/26/18 09:49 02/26/18 09:49 02/26/18 09:49 Results - Labs CBC & Chem 7: 02/26/18 09:17 02/26/18 09:17 Labs: Laboratory Last Values WBC 6.4 K/mm3 (4.5-11.0) 02/26/18 09:17 RBC 3.78 M/mm3 (3.65-5.03) 02/26/18 09:17 Hgb 12.4 gm/dl (10.1-14.3) 02/26/18 09:17 Hct 36.4 % (30.3-42.9) 02/26/18 09:17 MCV 96 fl (79-97) 02/26/18 09:17 MCH 33 pg (28-32) H 02/26/18 09:17 MCHC 34 % (30-34) 02/26/18 09:17 RDW 14.5 % (13.2-15.2) 02/26/18 09:17 Plt Count 317 K/mm3 (140-440) 02/26/18 09:17 Lymph % (Auto) 31.8 % (13.4-35.0) 02/26/18 09:17 [place] % (Auto) 8.0 % (0.0-7.3) H 02/26/18 09:17 Eos % (Auto) 5.6 % (0.0-4.3) H 02/26/18 09:17 Baso % (Auto) 1.5 % (0.0-1.8) 02/26/18 09:17 Lymph # 2.0 K/mm3 (1.2-5.4) 02/26/18 09:17 [place] # 0.5 K/mm3 (0.0-0.8) 02/26/18 09:17 Eos # 0.4 K/mm3 (0.0-0.4) 02/26/18 09:17 Baso # 0.1 K/mm3 (0.0-0.1) 02/26/18 09:17 Seg Neutrophils % 53.1 % (40.0-70.0) 02/26/18 09:17 Seg Neutrophils # 3.4 K/mm3 (1.8-7.7) 02/26/18 09:17 Sodium 138 mmol/L (137-145) 02/26/18 09:17 Potassium 2.6 mmol/L (3.6-5.0) L* 02/26/18 09:17 Chloride 98.5 mmol/L (98-107) 02/26/18 09:17 Carbon Dioxide 27 mmol/L (22-30) 02/26/18 09:17 Anion Gap 15 mmol/L 02/26/18 09:17 BUN 9 mg/dL (7-17) 02/26/18 09:17 Creatinine 0.7 mg/dL (0.7-1.2) 02/26/18 09:17 Estimated GFR > 60 ml/min 02/26/18 09:17 BUN/Creatinine Ratio 13 % 02/26/18 09:17 Glucose 105 mg/dL (65-100) H 02/26/18 09:17 Calcium 8.6 mg/dL (8.4-10.2) 02/26/18 09:17 Troponin T < 0.010 ng/mL (0.00-0.029) 02/26/18 09:17 NT-Pro-B Natriuret Pep 15.57 pg/mL (0-450) 02/26/18 09:17 - Imaging and Cardiology Chest x-ray: image reviewed (acute pathology noted on chest x-ray) Assessment and Plan Assessment and plan: Patient is a 44-year-old female with past medical history of tobacco use who presents to the hospital with complaint of chest tenderness either about 3 hours prior to presentation. The patient dispensed FROM bed radiate into her left neck and left upper extremity and down her neck lateral side. She rates it a 10 /10 at its worse and also associated with worsening dyspnea on exertion. The patient otherwise denies any nausea vomiting or diarrhea denies any prior episodes. She denies any orthopnea or syncope. Atypical chest pain Dyspnea on Exertion Hypokalemia Tobacco use disorder Plan Admit to tele Chest pain protocol Chest xray unremarkable Cardiology consultation Albuterol when necessary Stress test in AM Check D.dimer Tobacco cessation counselling >15 mins DVT/GI prophy Advance Directives: Yes Plan of care discussed with patient/family: Yes
[2018-02-26] MEDS: KCL 10MEQ/100ML 10 MEQ/100 ML BAG IV SCH ×2 (13:23→15:09)
[2018-02-26] MEDS: HABITROL TD SCH (13:23)
[2018-02-26] MEDS: DUONEB *Not for PRN Use IH SCH ×2 (15:25→20:54)
[2018-02-26] MEDS: TYLENOL PO PRN (21:07)
[2018-02-26] MEDS: PEPCID PO SCH (21:07)
[2018-02-26] MEDS: SODIUM CHLORIDE FLUSH SYRINGE 10 ML IV SCH (23:36)
[2018-02-27 05:40] LABS: Basophils % (Auto) 0.8 % (0.0-1.8); Eosinophils # (Auto) 0.4 K/mm3 (0.0-0.4); Eosinophils % (Auto) 8.1 % (0.0-4.3); Hematocrit 35.1 % (30.3-42.9); Hemoglobin 11.9 gm/dl (10.1-14.3); Lymphocytes # (Auto) 1.9 K/mm3 (1.2-5.4); Lymphocytes % (Auto) 41.2 % (13.4-35.0); Mean Corpuscular HGB Conc 34 % (30-34); Mean Corpuscular Volume 97 fl (79-97); Monocytes # (Auto) 0.5 K/mm3 (0.0-0.8); Monocytes % (Auto) 10.8 % (0.0-7.3); Platelet Count 283 K/mm3 (140-440); Red Blood Count 3.61 M/mm3 (3.65-5.03); Red Cell Distribution Width 14.6 % (13.2-15.2)
[2018-02-27 05:50] LABS: BUN/Creatinine Ratio 11; Blood Urea Nitrogen 9 mg/dL (7-17); Calcium 8.6 mg/dL (8.4-10.2); Hemolysis Index 7
[2018-02-27] MEDS ORDERED: K-DUR PO ONE ×4 (06:55→16:00)
[2018-02-27 08:10] LABS: HCG Qualitative,Urine Negative (Negative)
[2018-02-27] MEDS: DUONEB *Not for PRN Use IH SCH ×3 (08:19→19:24)
[2018-02-27] MEDS ORDERED: MAGNESIUM SULFATE IV ONE (08:34)
[2018-02-27] MEDS ORDERED: MAGNESIUM SULFATE 1 GM in NACL 0.9% 50 ML IV ONE (09:00)
[2018-02-27] MEDS ORDERED: KCL 10MEQ/100ML 10 MEQ/100 ML BAG IV SCH (09:00)
[2018-02-27] MEDS ORDERED: NON-FORMULARY (Losartan [Cozaar] 100 MG) PO SCH (10:00)
--- NOTE | 2018-02-27 12:56 | Consultation ---
Addendum entered and electronically signed by ABBY ALATORRE MD 02/27/18 13:30: 43-year-old woman with a history of hypertension, tobacco abuse, no prior cardia c history. She presented to the hospital with chest pain. She describes left upper chest pain which was not exertional but aggravated by movement of the chest wall, raising the left arm, coughing and deep inspiration. A stress test ordered by the medical service today was cancelled by us due to the patient's low potassium of 2.6 on presentation. ECG is normal sinus rhythm with nonspecific lateral ST and T-wave abnormality. The ECG is unchanged from her previous ECGs in the medical record. Recommendations: Presenting chest pain appears musculoskeletal. We will recommend a trial of nonsteroidal anti-inflammatory agents for musculoskeletal chest pain relief. Okay to pursue thallium stress testing once the hypokalemia is corrected, for further evaluation of the abnormal ECG in the setting of multiple coronary risk factors. Hypokalemia is probably related to patient's chronic therapy with diuretics for hypertension, not shown to current potassium replacement, she would likely benefit from long-term outpatient potassium replacement. Original Note: History of Present Illness Consult date: 02/27/18 Consult reason: chest pain History of present illness: Patient is a 43 year old woman who smokes cigarettes and has hypertension. She presents to this hospital with complaints of atypical chest pain that woke her from sleep. Chest pain is worse with positional changes, deep inspiration and palpation. She denies diaphoresis, unusual shortness of breath and palpitations. Initial labs most significant for severe hypokalemia with a potassium of 2.6. Troponins are negative. An ECG is sinus rhythm with an incomplete right bundle branch blocke and nonspecific Twave abnormalities. A cardiac consultation was requested for evaluation of chest pain. Past History Past Medical History: hypertension Social history: smoking Family history: no significant family history Medications and Allergies Allergies Allergy/AdvReac Type Severity Reaction Status Date / Time coconut oil Allergy Angioedema Verified 05/07/16 00:57 Home Medications Medication Instructions Recorded Confirmed Last Taken Type Losartan [Cozaar] 100 mg PO QDAY #30 tablet 01/09/17 02/26/18 02/26/18 Rx Ibuprofen 800 mg PO BID PRN 02/26/18 02/26/18 Unknown History amLODIPine [Norvasc] 10 mg PO DAILY 02/26/18 02/26/18 02/26/18 History hydroCHLOROthiazide [HCTZ] 25 mg PO DAILY 02/26/18 02/26/18 02/26/18 History Active Meds: Active Medications Acetaminophen (Tylenol) 650 mg PO Q4H PRN PRN Reason: Pain MILD(1-3)/Fever >100.5/MENG Last Admin: 02/26/18 21:07 Dose: 650 mg Documented by: Albuterol (Proventil) 2.5 mg IH Q4HRT PRN PRN Reason: Shortness Of Breath Albuterol/Ipratropium (Duoneb *Not For Prn Use*) 1 ampul IH TIDRT [facility] Last Admin: 02/27/18 08:19 Dose: 1 ampul Documented by: Amlodipine Besylate (Norvasc) 10 mg PO DAILY [facility] Aspirin (Aspirin) 325 mg PO QDAY [facility] Bisacodyl (Dulcolax) 10 mg ND QDAY PRN PRN Reason: Constipation unrelieved by [facility] Famotidine (Pepcid) 20 mg PO BID [facility] Last Admin: 02/26/18 21:07 Dose: 20 mg Documented by: Hydrochlorothiazide (Hctz) 25 mg PO DAILY [facility] Losartan Potassium (Cozaar) 100 mg PO QDAY [facility] Magnesium Hydroxide (Milk Of Magnesia) 30 ml PO Q4H PRN PRN Reason: Constipation Methylprednisolone Sodium Succinate (Solu-Medrol) 60 mg IV Q8HR [facility] Morphine Sulfate (Morphine) 2 mg IV Q4H PRN PRN Reason: Pain, Moderate (4-6) Naloxone HCl (Narcan 0.4 Mg/1 Ml) 0.1 mg IV Q2MIN PRN PRN Reason: Res Rate </= 8 or 02 SAT < 92% Nicotine (Habitrol) 21 mg TD QDAY [facility] Last Admin: 02/26/18 13:23 Dose: 21 mg Documented by: Ondansetron HCl (Zofran) 4 mg IV Q8H PRN PRN Reason: Nausea And Vomiting Sodium Chloride (Sodium Chloride Flush Syringe 10 Ml) 10 ml IV BID [facility] Last Admin: 02/26/18 23:36 Dose: 10 ml Documented by: Sodium Chloride (Sodium Chloride Flush Syringe 10 Ml) 10 ml IV PRN PRN PRN Reason: LINE FLUSH Physical Examination Vital Signs Temp Pulse Resp BP Pulse Ox 98.6 F 80 18 110/75 100 02/26/18 09:02 02/26/18 09:02 02/26/18 09:02 02/26/18 09:02 02/26/18 09:02 General appearance: no acute distress HEENT: Positive: PERRL Neck: Positive: trachea midline Cardiac: Positive: Reg Rate and Rhythm Lungs: Positive: Decreased Breath Sounds Neuro: Positive: Grossly Intact Extremities: Absent: edema Results 02/27/18 05:10 02/27/18 10:17 CBC 02/27/18 Range/Units 05:10 WBC 4.5 (4.5-11.0) K/mm3 RBC 3.61 L (3.65-5.03) M/mm3 Hgb 11.9 (10.1-14.3) gm/dl Hct 35.1 (30.3-42.9) % Plt Count 283 (140-440) K/mm3 Lymph # 1.9 (1.2-5.4) K/mm3 Dunn # 0.5 (0.0-0.8) K/mm3 Eos # 0.4 (0.0-0.4) K/mm3 Baso # 0.0 (0.0-0.1) K/mm3 Comprehensive Metabolic Panel 02/27/18 Range/Units 05:10 Sodium 138 (137-145) mmol/L Potassium 2.8 L* (3.6-5.0) mmol/L Chloride 97.8 L (98-107) mmol/L Carbon Dioxide 29 (22-30) mmol/L BUN 9 (7-17) mg/dL Creatinine 0.8 (0.7-1.2) mg/dL Glucose 96 (65-100) mg/dL Calcium 8.6 (8.4-10.2) mg/dL Assessment and Plan Chest pain, musculoskeletal Hypokalemia Hypertension Tobacco abuse
[2018-02-27] MEDS: COZAAR PO SCH (13:31)
[2018-02-27] MEDS: HABITROL TD SCH (13:31)
[2018-02-27] MEDS: ASPIRIN PO SCH (13:32)
[2018-02-27] MEDS: NORVASC PO SCH (13:32)
[2018-02-27] MEDS: SODIUM CHLORIDE FLUSH SYRINGE 10 ML IV SCH ×2 (13:32→21:54)
[2018-02-27] MEDS: SOLU-Medrol IV SCH ×2 (13:32→21:54)
[2018-02-27] MEDS: PEPCID PO SCH ×2 (13:33→21:54)
[2018-02-27] MEDS: HCTZ PO SCH (13:34)
[2018-02-27] MEDS: TORADOL IV SCH ×2 (13:52→21:53)
[2018-02-27] MEDS ORDERED: SOLU-Medrol IV SCH (14:00)
--- NOTE | 2018-02-27 14:29 | Progress Note ---
Assessment and Plan Assessment and plan: Patient is a 44-year-old female with past medical history of tobacco use who presents to the hospital with complaint of chest tenderness either about 3 hours prior to presentation. The patient dispensed FROM bed radiate into her left neck and left upper extremity and down her neck lateral side. She rates it a 10/10 at its worse and also associated with worsening dyspnea on exertion. The patient otherwise denies any nausea vomiting or diarrhea denies any prior episodes. She denies any orthopnea or syncope. Atypical chest pain-musculoskeletal Dyspnea on Exertion Hypokalemia Tobacco use disorder Plan supportive care Chest pain protocol Chest xray unremarkable Cardiology consultation- input noted start some steriods Albuterol when necessary Stress test in AM Tobacco cessation counselling >15 mins DVT/GI prophy History Interval history: Patient is seen today for: Shortness of breath Seen and examined at bedside; 24hour events reviewed; nursing staff ; no adverse overnight events reported to me; Denies any, nausea, vomiting, diarrhea Still with reproducible chest pain and also shortness of breath. Hospitalist Physical - Physical exam Narrative exam: VITAL SIGNS: Reviewed. GENERAL: The patient appeared well nourished and normally developed. Vital signs as documented. HEAD: No signs of head trauma. EYES: Pupils are equal. Extraocular motions intact. EARS: Hearing grossly intact. MOUTH: Oropharynx is normal. NECK: No adenopathy, no JVD. CHEST: Chest with diminished with tachypnea otherwise no wheezing no rales or rhonchi CARDIAC: Regular rate and rhythm. S1 and S2, without murmurs, gallops, or rubs. VASCULAR: No Edema. Peripheral pulses normal and equal in all extremities. ABDOMEN: Soft, without detectable tenderness. No sign of distention. No rebound or guarding, and no masses palpated. Bowel Sounds normal. MUSCULOSKELETAL: Good range of motion of all major joints. Extremities without clubbing, cyanosis or edema. NEUROLOGIC EXAM: Alert and oriented x 3. No focal sensory or strength deficits. Speech normal. Follows commands. PSYCHIATRIC: Mood normal. SKIN: No rash or lesions. - Constitutional Vitals: Temp Pulse Resp BP Pulse Ox 98.3 F 73 20 119/83 100 02/27/18 12:21 02/27/18 13:32 02/27/18 13:52 02/27/18 13:32 02/27/18 12:21 General appearance: Present: no acute distress Results - Labs CBC & Chem 7: 02/27/18 05:10 02/27/18 10:17 Labs: Laboratory Last Values WBC 4.5 K/mm3 (4.5-11.0) 02/27/18 05:10 RBC 3.61 M/mm3 (3.65-5.03) L 02/27/18 05:10 Hgb 11.9 gm/dl (10.1-14.3) 02/27/18 05:10 Hct 35.1 % (30.3-42.9) 02/27/18 05:10 MCV 97 fl (79-97) 02/27/18 05:10 MCH 33 pg (28-32) H 02/27/18 05:10 MCHC 34 % (30-34) 02/27/18 05:10 RDW 14.6 % (13.2-15.2) 02/27/18 05:10 Plt Count 283 K/mm3 (140-440) 02/27/18 05:10 Lymph % (Auto) 41.2 % (13.4-35.0) H 02/27/18 05:10 [place] % (Auto) 10.8 % (0.0-7.3) H 02/27/18 05:10 Eos % (Auto) 8.1 % (0.0-4.3) H 02/27/18 05:10 Baso % (Auto) 0.8 % (0.0-1.8) 02/27/18 05:10 Lymph # 1.9 K/mm3 (1.2-5.4) 02/27/18 05:10 [place] # 0.5 K/mm3 (0.0-0.8) 02/27/18 05:10 Eos # 0.4 K/mm3 (0.0-0.4) 02/27/18 05:10 Baso # 0.0 K/mm3 (0.0-0.1) 02/27/18 05:10 Seg Neutrophils % 39.1 % (40.0-70.0) L 02/27/18 05:10 Seg Neutrophils # 1.8 K/mm3 (1.8-7.7) 02/27/18 05:10 D-Dimer 135.1 ng/mlDDU (0-234) 02/26/18 11:59 Sodium 138 mmol/L (137-145) 02/27/18 05:10 Potassium 3.3 mmol/L (3.6-5.0) L 02/27/18 10:17 Chloride 97.8 mmol/L (98-107) L 02/27/18 05:10 Carbon Dioxide 29 mmol/L (22-30) 02/27/18 05:10 Anion Gap 14 mmol/L 02/27/18 05:10 BUN 9 mg/dL (7-17) 02/27/18 05:10 Creatinine 0.8 mg/dL (0.7-1.2) 02/27/18 05:10 Estimated GFR > 60 ml/min 02/27/18 05:10 BUN/Creatinine Ratio 11 % 02/27/18 05:10 Glucose 96 mg/dL (65-100) 02/27/18 05:10 Calcium 8.6 mg/dL (8.4-10.2) 02/27/18 05:10 Troponin T < 0.010 ng/mL (0.00-0.029) 02/26/18 14:23 NT-Pro-B Natriuret Pep 15.57 pg/mL (0-450) 02/26/18 09:17 Urine HCG, Qual Negative (Negative) 02/27/18 07:55
[2018-02-27] MEDS: TYLENOL PO PRN (17:43)
[2018-02-28] MEDS: TORADOL IV SCH ×2 (06:12→13:10)
[2018-02-28] MEDS: SOLU-Medrol IV SCH ×2 (06:13→13:10)
[2018-02-28] MEDS ORDERED: LEXISCAN IV ONE (08:21)
[2018-02-28] MEDS: DUONEB *Not for PRN Use IH SCH ×2 (09:06→13:51)
[2018-02-28] MEDS: TYLENOL PO PRN (09:55)
[2018-02-28] MEDS ORDERED: K-DUR PO ONE (10:00)
--- NOTE | 2018-02-28 11:56 | Event Note ---
Date: 02/28/18 Atypical chest pain No events on tele MPI this admission is normal with normal EF Abnormal ECG COPD Systemic Hypertension Tobacco use Hypokalemia Recommendations: No further cardiac work-up is needed Replace HCTZ with aldactone upon discharge Outpatient follow-up Cardiology will sign off
[2018-02-28] MEDS ORDERED: PNEUMOVAX 23 IM ONE (12:00)
[2018-02-28] MEDS ORDERED: AFLURIA QUAD 2018-2019 SYRINGE IM ONE (12:00)
[2018-02-28 12:39] VITALS: BP 122/77
[2018-02-28] MEDS: ASPIRIN PO SCH (12:55)
[2018-02-28] MEDS: NORVASC PO SCH (12:56)
[2018-02-28] MEDS: PEPCID PO SCH (12:56)
[2018-02-28] MEDS: HABITROL TD SCH (12:56)
[2018-02-28] MEDS: SODIUM CHLORIDE FLUSH SYRINGE 10 ML IV SCH (12:58)
[2018-02-28] MEDS: COZAAR PO SCH (12:58)
[2018-02-28] MEDS: HCTZ PO SCH (13:11)
--- NOTE | 2018-02-28 15:00 | Discharge Summary ---
Providers - Providers Date of Admission: 02/28/18 14:20 Attending physician: TERRENCE GARZA MD Primary care physician: [employer] Hospitalization Reason for admission: CHEST PAIN Condition: Good Hospital course: Patient is a 44-year-old female with past medical history of tobacco use who presents to the hospital with complaint of chest tenderness either about 3 hours prior to presentation. The patient dispensed FROM bed radiate into her left neck and left upper extremity and down her neck lateral side. She rates it a 10/10 at its worse and also associated with worsening dyspnea on exertion. The patient otherwise denies any nausea vomiting or diarrhea denies any prior episodes. She denies any orthopnea or syncope. Pateint was started on steroids and also went for stress test with negative finding. the patient was given counselling on tobacco abuse and she verablized understand, she was started on nicotin patch with counselling not to smoke while wearing the patch. she was evaluated for home oxygen but maintained a saturation of 98% on ROOM air Atypical chest pain-musculoskeletal Dyspnea on Exertion COPD EXACERBATION HTN Hypokalemia Abnormal ECG Tobacco use disorder Disposition: TO HOME OR SELFCARE Time spent for discharge: 35 MINS Core Measure Documentation - Palliative Care Palliative Care/ Comfort Measures: Not Applicable - Core Measures Any of the following diagnoses?: none Exam - Physical Exam Narrative exam: VITAL SIGNS: Reviewed. GENERAL: The patient appeared well nourished and normally developed. Vital signs as documented. HEAD: No signs of head trauma. EYES: Pupils are equal. Extraocular motions intact. EARS: Hearing grossly intact. MOUTH: Oropharynx is normal. NECK: No adenopathy, no JVD. CHEST: Chest with clear breath sound breath bilateral. no wheezing no rales or rhonchi CARDIAC: Regular rate and rhythm. S1 and S2, without murmurs, gallops, or rubs. VASCULAR: No Edema. Peripheral pulses normal and equal in all extremities. ABDOMEN: Soft, without detectable tenderness. No sign of distention. No rebound or guarding, and no masses palpated. Bowel Sounds normal. MUSCULOSKELETAL: Good range of motion of all major joints. Extremities without clubbing, cyanosis or edema. NEUROLOGIC EXAM: Alert and oriented x 3. No focal sensory or strength deficits. Speech normal. Follows commands. PSYCHIATRIC: Mood normal. SKIN: No rash or lesions. - Constitutional Vitals: Temp Pulse Resp BP Pulse Ox 98.1 F 84 18 122/77 99 01/11/19 12:38 02/28/18 12:37 02/28/18 12:37 02/28/18 12:37 02/28/18 12:37 Plan Activity: advance as tolerated, fall precautions Diet: low fat Follow up with: PRIMARY CARE,MD [Primary Care Provider] - 7 Days Prescriptions: ALBUTEROL NEB's [Proventil 0.083% NEBS] 2.5 mg IH Q4HRT PRN #120 nebu PRN Reason: Shortness Of Breath Famotidine [Pepcid] 20 mg PO DAILY #30 tablet Nicotine [Nicotine Patch] 1 each TD DAILY #30 patch.td24 Prednisone [predniSONE 10 mg (6-Day Pack, 21 Tabs)] 10 mg PO .TAPER #1 tab.ds.pk Ipratropium/Albuterol Sulfate [DUONEB *Not for PRN Use*] 1 ampul IH TIDRT #90 ampul.neb Other Discharge Orders: Nebulizer (Amb) Location: None Selected
--- NOTE | 2018-02-28 18:53 | Treadmill Report ---
INDICATION: Chest pain. ORDERING PHYSICIAN: Dr. Zhen Thomson. FINDINGS: There is no scintigraphic evidence of myocardial ischemia. The left ventricle is normal in size and systolic function. The left ventricular ejection fraction is measured at greater than 60%. Normal wall motion and wall thickening is noted on gated imaging. CONCLUSION: Normal perfusion scan. JOB# [id number] JEF/HARVEY
[2018-03-01] MEDS ORDERED: ALDACTONE PO SCH (10:00)
== END 2018-02-28 14:45 | disposition home or self-care (01) | DRG 192 ==
LOC: ED 08:53 → 4A 10:03 → INTOOBSV 10:03 → OBSVTOIN 02-28 14:20
PROVIDERS: ADMIT Internal Medicine; ATTEND Internal Medicine
PROC: 3E0234Z Introduction of Serum, Toxoid and Vaccine into Muscle, Percutaneous Approach (ICD-10-PCS; principal; 2018-02-28)
DX: J44.1 Chronic obstructive pulmonary disease with (acute) exacerbation (principal); I10 Essential (primary) hypertension; M19.90 Unspecified osteoarthritis, unspecified site; E87.6 Hypokalemia; R07.89 Other chest pain; F17.210 Nicotine dependence, cigarettes, uncomplicated; Z79.899 Other long term (current) drug therapy; Z91.09 Other allergy status, other than to drugs and biological substances; Z71.6 Tobacco abuse counseling; Z23 Encounter for immunization
CPT/HCPCS: 36415; 71045; 78452; 80048; 81025; 83880; 84132; 84484; 85025; 85379; 87116; 90686; 90732; 93005; 93010; 93017; 94640; 94760; 96365; 96375; 99406; G0378; A9502; J1885; J2930; J3475; J3480

== ENCOUNTER 2018-03-22 10:57 | Emergency (ER) | payer OTHER ==
--- NOTE | 2018-03-22 11:22 | Emergency Department Report ---
ED Lower Extremity HPI - General Chief Complaint: Extremity Injury, Lower Stated Complaint: KNEE PAIN Time Seen by Provider: 03/22/18 11:14 Source: patient Mode of arrival: Ambulatory Limitations: No Limitations - History of Present Illness Initial Comments: 43 year old female with a past medical history of arthritis, COPD, hypertension, bronchitis, and fibroids but also complains of bilateral knee pain right greater than left the past 3 days. Patient denies any injury or fall. She has a history of arthritis but not particularly knee pain. Pain is aching, constant, worse with knee movement and pressure when walking. She denies fever, swelling, or warmth. Patient taken Motrin 800 mg at home for pain without improvement. - Related Data Home Medications Medication Instructions Recorded Confirmed Last Taken Ibuprofen 800 mg PO BID PRN 02/26/18 02/26/18 Unknown amLODIPine [Norvasc] 10 mg PO DAILY 02/26/18 02/26/18 02/26/18 hydroCHLOROthiazide [HCTZ] 25 mg PO DAILY 02/26/18 02/26/18 02/26/18 Previous Rx's Medication Instructions Recorded Last Taken Type Losartan [Cozaar] 100 mg PO QDAY #30 tablet 01/09/17 02/26/18 Rx ALBUTEROL NEB's [Proventil 0.083% 2.5 mg IH Q4HRT PRN #120 nebu 02/28/18 Unknown Rx NEBS] Famotidine [Pepcid] 20 mg PO DAILY #30 tablet 02/28/18 Unknown Rx Ipratropium/Albuterol Sulfate 1 ampul IH TIDRT #90 ampul.neb 02/28/18 Unknown Rx [DUONEB *Not for PRN Use*] Nicotine [Nicotine Patch] 1 each TD DAILY #30 patch.td24 02/28/18 Unknown Rx Prednisone [predniSONE 10 mg 10 mg PO .TAPER #1 tab.ds.pk 02/28/18 Unknown Rx (6-Day Pack, 21 Tabs)] Ibuprofen [Motrin] 800 mg PO Q8HR PRN #30 tablet 03/22/18 Unknown Rx traMADol [Ultram 50 MG tab] 50 mg PO Q6HR PRN #20 tablet 03/22/18 Unknown Rx Allergies Allergy/AdvReac Type Severity Reaction Status Date / Time coconut oil Allergy Angioedema Verified 05/07/16 00:57 ED Review of Systems ROS: Stated complaint: KNEE PAIN Other details as noted in HPI Comment: All other systems reviewed and negative ED Past Medical Hx - Past Medical History Previous Medical History?: Yes Hx Hypertension: Yes (uncontrolled) Hx Congestive Heart Failure: No Hx Diabetes: No Hx Arthritis: Yes Hx Asthma: No Hx COPD: Yes Additional medical history: bronchitis. FIBROIDS - Surgical History Past Surgical History?: Yes Additional Surgical History: ectopic preg. Neck mass bx - Social History Smoking Status: Former Smoker Substance Use Type: Prescribed - Medications Home Medications: Home Medications Medication Instructions Recorded Confirmed Last Taken Type Losartan [Cozaar] 100 mg PO QDAY #30 tablet 01/09/17 02/26/18 02/26/18 Rx Ibuprofen 800 mg PO BID PRN 02/26/18 02/26/18 Unknown History amLODIPine [Norvasc] 10 mg PO DAILY 02/26/18 02/26/18 02/26/18 History hydroCHLOROthiazide [HCTZ] 25 mg PO DAILY 02/26/18 02/26/18 02/26/18 History ALBUTEROL NEB's [Proventil 0.083% 2.5 mg IH Q4HRT PRN #120 nebu 02/28/18 Unknown Rx NEBS] Famotidine [Pepcid] 20 mg PO DAILY #30 tablet 02/28/18 Unknown Rx Ipratropium/Albuterol Sulfate 1 ampul IH TIDRT #90 ampul.neb 02/28/18 Unknown Rx [DUONEB *Not for PRN Use*] Nicotine [Nicotine Patch] 1 each TD DAILY #30 patch.td24 02/28/18 Unknown Rx Prednisone [predniSONE 10 mg 10 mg PO .TAPER #1 tab.ds.pk 02/28/18 Unknown Rx (6-Day Pack, 21 Tabs)] Ibuprofen [Motrin] 800 mg PO Q8HR PRN #30 tablet 03/22/18 Unknown Rx traMADol [Ultram 50 MG tab] 50 mg PO Q6HR PRN #20 tablet 03/22/18 Unknown Rx ED Physical Exam - General Limitations: No Limitations - Other Other exam information: General: No limitations, patient is alert in no acute distress Head exam: Atraumatic, normocephalic Eyes exam: Normal appearance ENT: Moist mucous membrane, normal oropharynx Neck exam: Normal inspection, full range of motion, no meningismus nontender Respiratory exam: Clear to auscultation bilateral, no wheezes, rales, crackles Cardiovascular: Normal rate and rhythm, normal heart sounds Abdomen: Soft, nondistended, and nontender, with normal bowel sounds, no rebound, or guarding Extremity: Full range of motion normal inspection no deformity. Tenderness to medial and bilateral right knee joint. Tender at the patellar tendon. No joint instability with valgus or varus stress. No warmth or erythema. Back: Normal Inspection, full range of motion, no tenderness Neurologic: Alert, oriented x3, cranial nerves intact, no motor or sensory deficit Psychiatric: normal affect, normal mood Skin: Warm, dry, intact ED Course Vital Signs 03/22/18 11:01 Temperature 98.3 F Pulse Rate 90 Respiratory 20 Rate Blood Pressure 121/78 O2 Sat by Pulse 100 Oximetry ED Lower Extremity MDM - Radiology Data Radiology results: report reviewed FINAL REPORT EXAM: XR KNEE 3V RT HISTORY: knee pain COMPARISON: None. TECHNIQUE: Three views of the right knee FINDINGS: There is normal alignment without acute fracture or dislocation. The joint spaces are preserved. The overlying soft tissues are intact. IMPRESSION: No acute bony abnormality of the right knee. - Medical Decision Making Patient took ibuprofen prior to arrival there for cannot receive additional medicine ED since she is driving. X-ray reveals no acute findings. Pain meds provided orthopedic referral. Jm wrap placed on right knee - Differential Diagnosis fracture, contusion, sprain, arthritis, bursitis Critical Care Time: No Critical care attestation.: If time is entered above; I have spent that time in minutes in the direct care of this critically ill patient, excluding procedure time. ED Disposition Clinical Impression: Bilateral knee pain Disposition: - TO HOME OR SELFCARE Is pt being admited?: No Does the pt Need Aspirin: No Condition: Stable Instructions: Knee Pain (ED) Additional Instructions: Take the medication as prescribed. Follow up with a primary care doctor and an orthopedic doctor. Return if symptoms worsen as indicated by your discharge instructions Prescriptions: Ibuprofen [Motrin] 800 mg PO Q8HR PRN #30 tablet PRN Reason: Pain, Moderate (4-6) traMADol [Ultram 50 MG tab] 50 mg PO Q6HR PRN #20 tablet PRN Reason: Pain Referrals: JULIANNA RODRIGUEZ MD [Primary Care Provider] - 3-5 Days ELY GARRETT MD [Staff Physician] - 3-5 Days (Orthopedic doctor) Time of Disposition: 12:17
--- NOTE | 2018-03-22 12:08 | XRay Report ---
FINAL REPORT EXAM: XR KNEE 3V RT HISTORY: knee pain COMPARISON: None. TECHNIQUE: Three views of the right knee FINDINGS: There is normal alignment without acute fracture or dislocation. The joint spaces are preserved. The overlying soft tissues are intact. IMPRESSION: No acute bony abnormality of the right knee.
[2018-03-23 13:55] VITALS: BP 121/78
== END 2018-03-22 13:10 | disposition home or self-care (01) ==
LOC: ED 10:57
DX: M25.561 Pain in right knee (principal); M25.562 Pain in left knee; I10 Essential (primary) hypertension; M19.90 Unspecified osteoarthritis, unspecified site; J44.9 Chronic obstructive pulmonary disease, unspecified; Z87.891 Personal history of nicotine dependence

== ENCOUNTER 2019-10-11 00:14 | Emergency (ER) | payer OTHER ==
[2019-10-11 01:27] VITALS: BP 146/99
--- NOTE | 2019-10-11 03:28 | Emergency Department Report ---
ED Female HPI - General Chief complaint: Abdominal Pain Stated complaint: VAGINAL RASH, NO BM Time Seen by Provider: 10/11/19 02:55 Source: patient Mode of arrival: Ambulatory Limitations: No Limitations - History of Present Illness Initial comments: 44-year-old -[place] female presents to the emergency room complaining of severe urinary burning since . Patient states that she had laser fibroid procedure last Saturday. Patient states she has not been able to have a bowel movement since then. Patient reports some nausea and vomiting. She reports she is able to drink water but not much food. Patient states that her pain is an 8-9 out of 10. She reports she is used some [id number] Colace and fleets enema without relief of her constipation. MD Complaint: pelvic pain Onset/Timin -: days(s) Location: labia, suprapubic Severity: severe Severity scale (0 -10): 8 Quality: burning Consistency: constant Improves with: none Worsens with: urination Are you Now?: No Last Menstrual Period: 09/09/19 EDC: 06/15/20 Associated Symptoms: vaginal discharge, abdominal pain, nausea/vomiting. denies: fever/chills - Related Data Home Medications Medication Instructions Recorded Confirmed Last Taken Ibuprofen [Ibuprofen 800] 800 mg PO BID PRN 02/26/18 02/26/18 Unknown amLODIPine 10 mg PO DAILY 02/26/18 02/26/18 02/26/18 hydroCHLOROthiazide [HCTZ] 25 mg PO DAILY 02/26/18 02/26/18 02/26/18 Previous Rx's Medication Instructions Recorded Last Taken Type Losartan [Cozaar] 100 mg PO QDAY #30 tablet 01/09/17 02/26/18 Rx ALBUTEROL NEB's [Proventil 0.083% 2.5 mg IH Q4HRT PRN #120 nebu 02/28/18 Unknown Rx NEBS] Famotidine [Pepcid] 20 mg PO DAILY #30 tablet 02/28/18 Unknown Rx Ipratropium/Albuterol Sulfate 1 ampul IH TIDRT #90 ampul.neb 02/28/18 Unknown Rx [DUONEB *Not for PRN Use*] Nicotine [Nicotine Patch] 1 each TD DAILY #30 patch.td24 02/28/18 Unknown Rx Prednisone [predniSONE 10 mg 10 mg PO .TAPER #1 tab.ds.pk 02/28/18 Unknown Rx (6-Day Pack, 21 Tabs)] Ibuprofen [Motrin] 800 mg PO Q8HR PRN #30 tablet 03/22/18 Unknown Rx traMADoL [Ultram 50 MG tab] 50 mg PO Q6HR PRN #20 tablet 03/22/18 Unknown Rx Doxycycline Hyclate [Doxycycline 100 mg PO Q12HR 10 Days #20 tab 10/11/19 Unknown Rx Hyclate TAB] Polyethylene Glycol 3350 [Miralax] 17 gm PO BID PRN #119 gram 10/11/19 Unknown Rx metroNIDAZOLE [Flagyl] 500 mg PO Q12HR 7 Days #14 tab 10/11/19 Unknown Rx Allergies Allergy/AdvReac Type Severity Reaction Status Date / Time coconut oil Allergy Angioedema Verified 05/07/16 00:57 ED Review of Systems ROS: Stated complaint: VAGINAL RASH, NO BM Other details as noted in HPI Comment: All other systems reviewed and negative ED Past Medical Hx - Past Medical History Previous Medical History?: Yes Hx Hypertension: Yes Hx Congestive Heart Failure: No Hx Diabetes: No Hx Arthritis: Yes Hx Asthma: No Hx COPD: Yes Additional medical history: bronchitis. FIBROIDS - Surgical History Past Surgical History?: Yes Additional Surgical History: ectopic preg. Neck mass bx - Social History Smoking Status: Current Every Day Smoker Substance Use Type: None - Medications Home Medications: Home Medications Medication Instructions Recorded Confirmed Last Taken Type Losartan [Cozaar] 100 mg PO QDAY #30 tablet 01/09/17 02/26/18 02/26/18 Rx Ibuprofen [Ibuprofen 800] 800 mg PO BID PRN 02/26/18 02/26/18 Unknown History amLODIPine 10 mg PO DAILY 02/26/18 02/26/18 02/26/18 History hydroCHLOROthiazide [HCTZ] 25 mg PO DAILY 02/26/18 02/26/18 02/26/18 History ALBUTEROL NEB's [Proventil 0.083% 2.5 mg IH Q4HRT PRN #120 nebu 02/28/18 Unknown Rx NEBS] Famotidine [Pepcid] 20 mg PO DAILY #30 tablet 02/28/18 Unknown Rx Ipratropium/Albuterol Sulfate 1 ampul IH TIDRT #90 ampul.neb 02/28/18 Unknown Rx [DUONEB *Not for PRN Use*] Nicotine [Nicotine Patch] 1 each TD DAILY #30 patch.td24 02/28/18 Unknown Rx Prednisone [predniSONE 10 mg 10 mg PO .TAPER #1 tab.ds.pk 02/28/18 Unknown Rx (6-Day Pack, 21 Tabs)] Ibuprofen [Motrin] 800 mg PO Q8HR PRN #30 tablet 03/22/18 Unknown Rx traMADoL [Ultram 50 MG tab] 50 mg PO Q6HR PRN #20 tablet 03/22/18 Unknown Rx Doxycycline Hyclate [Doxycycline 100 mg PO Q12HR 10 Days #20 tab 10/11/19 Unknown Rx Hyclate TAB] Polyethylene Glycol 3350 [Miralax] 17 gm PO BID PRN #119 gram 10/11/19 Unknown Rx metroNIDAZOLE [Flagyl] 500 mg PO Q12HR 7 Days #14 tab 10/11/19 Unknown Rx ED Physical Exam - General Limitations: No Limitations General appearance: alert, in distress - Head Head exam: Present: atraumatic, normocephalic - Eye Eye exam: Present: normal appearance - ENT ENT exam: Present: mucous membranes moist - Neck Neck exam: Present: normal inspection, full ROM - Cardiovascular Cardiovascular Exam: Present: regular rate - GI/Abdominal GI/Abdominal exam: Present: soft, distended, tenderness - External exam: Present: erythema, swelling, other (Vaginal discharge) - Extremities Exam Extremities exam: Present: normal inspection, full ROM - Back Exam Back exam: Present: normal inspection, full ROM - Neurological Exam Neurological exam: Present: alert, oriented X3 - Psychiatric Psychiatric exam: Present: normal affect, normal mood - Skin Skin exam: Present: warm, dry, intact, normal color. Absent: rash ED Course Vital Signs 10/11/19 01:18 Temperature 98.1 F Pulse Rate 100 H Respiratory 18 Rate Blood Pressure 146/99 O2 Sat by Pulse 98 Oximetry Critical care attestation.: If time is entered above; I have spent that time in minutes in the direct care of this critically ill patient, excluding procedure time. ED Disposition Clinical Impression: Constipation, Bacterial vaginosis, Vaginitis Disposition: - TO HOME OR SELFCARE Is pt being admited?: No Does the pt Need Aspirin: No Condition: Stable Instructions: Abdominal Pain (ED), Bacterial Vaginosis (ED) Additional Instructions: Complete antibiotics as prescribed. Take MiraLAX twice a day as prescribed. Once she started having a stool did not take it once a day as needed for constipation. It is very important that you follow-up with your [employer] within the next 2 days. Try to avoid taking narcotics as this can make her constipation worse. Encouraged to use ibuprofen for pain management. Prescriptions: Doxycycline Hyclate [Doxycycline Hyclate TAB] 100 mg PO Q12HR 10 Days #20 tab metroNIDAZOLE [Flagyl] 500 mg PO Q12HR 7 Days #14 tab Polyethylene Glycol 3350 [Miralax] 17 gm PO BID PRN #119 gram PRN Reason: Constipation Referrals: PRIMARY CARE, [Primary Care Provider] - 3-5 Days Forms: STI Treatment and Prevention
--- NOTE | 2019-10-11 03:48 | XRay Report ---
ABDOMEN 1 VIEW(S) INDICATION / CLINICAL INFORMATION: Generalized abdominal pain and constipation COMPARISON: Abdominal radiograph, 07/04/2016 FINDINGS: TUBES / LINES: None. BOWEL GAS PATTERN: The bowel gas pattern appears nonobstructive. ADDITIONAL FINDINGS: Evaluation of bony structures demonstrates no evidence of acute bony abnormality . IMPRESSION: 1. No radiographic evidence of acute intra-abdominal process. Signer Name: Katarina Ocampo MD Signed: 10/11/2019 3:43 AM Workstation Name: [id number]
== END 2019-10-11 06:48 | disposition home or self-care (01) ==
LOC: ED 00:14
DX: N76.0 Acute vaginitis (principal); B96.89 Other specified bacterial agents as the cause of diseases classified elsewhere; K59.00 Constipation, unspecified; I10 Essential (primary) hypertension; M13.88 Other specified arthritis, other site; J44.9 Chronic obstructive pulmonary disease, unspecified; F17.200 Nicotine dependence, unspecified, uncomplicated; Z91.018 Allergy to other foods
CPT/HCPCS: 74018; 87210; 99283